=== PATIENT | female | born 1935 | race Caucasian/White ===

== ENCOUNTER 2020-05-25 18:03 | Inpatient (IN) | payer MEDICARE ==
[2020-05-25 20:57] LABS: Glucose,Whole Blood 123 mg/dL (75-99)
[2020-05-25] MEDS ORDERED: NALOXONE 0.4 MG/ML 1 ML VIAL IV PRN (23:55)
[2020-05-25] MEDS ORDERED: hydrALAZINE HCL 50 MG TAB PO STA (23:58)
[2020-05-26] MEDS ORDERED: levETIRAcetam IV 1,000 MG in SALINE 1 100ML.BAG IVPB ONE
[2020-05-26] MEDS: SODIUM CHLORIDE 0.9% 1,000 ML IV SCH ×3 (00:30→21:02)
[2020-05-26 01:40] LABS: Basophils # (A) 0.1 k/uL (0-0.2); Basophils % (A) 2 %; Eosinophils # (A) 0.1 k/uL (0-0.7); Eosinophils % (A) 1 %; HCT 32.8 % (34.0-46.0); HGB 10.8 gm/dL (11.4-16.0); Lymphocytes # (A) 1.5 k/uL (1.0-4.8); Lymphocytes % (A) 19 %; MCH 30.7 pg (25.0-35.0); MCHC 32.8 g/dL (31.0-37.0); MCV 93.6 fL (80.0-100.0); Mean Platelet Volume 8.6; Monocytes # (A) 0.6 k/uL (0-1.0); Monocytes % (A) 8 %; Neutrophils # (A) 5.3 k/uL (1.3-7.7); Neutrophils % (A) 69 %; Platelet Count 283 k/uL (150-450); RBC 3.51 m/uL (3.80-5.40); RDW 14.7 % (11.5-15.5); WBC 7.8 k/uL (3.8-10.6)
[2020-05-26 01:41] LABS: Albumin 3.3 g/dL (3.5-5.0); Calcium 9.7 mg/dL (8.4-10.2); Magnesium 1.3 mg/dL (1.6-2.3); Potassium 4.2 mmol/L (3.5-5.1); Total Bilirubin 0.8 mg/dL (0.2-1.3)
--- NOTE | 2020-05-26 01:43 | CT ---
EXAM: CT Head Without Intravenous Contrast CLINICAL HISTORY: AMS TECHNIQUE: Axial computed tomography images of the head/brain without intravenous contrast. CTDI is each 50.8 mGy and DLP is 1103.4 mGy-cm. This CT exam was performed using one or more of the following dose reduction techniques: automated exposure control, adjustment of the mA and/or kV according to patient size, and/or use of iterative reconstruction technique. COMPARISON: No relevant prior studies available. FINDINGS: Brain: No acute findings. No acute intracranial hemorrhage, edema or abnormal mass-effect. Ventricles: Unremarkable. No ventriculomegaly. Bones/joints: Unremarkable. No acute fracture. Soft tissues: Unremarkable. Sinuses: Unremarkable as visualized. No acute sinusitis. Mastoid air cells: Unremarkable as visualized. No mastoid effusion. IMPRESSION: No acute intracranial findings.
--- NOTE | 2020-05-26 01:54 | XR ---
EXAM: XR Chest, 1 View CLINICAL HISTORY: AMS TECHNIQUE: Frontal view of the chest. COMPARISON: No relevant prior studies available. FINDINGS: Lungs: Unremarkable. No acute infiltration, atelectasis or mass. Pleural space: Unremarkable. No pneumothorax or pleural fluid. Heart: Unremarkable. No cardiomegaly. Mediastinum: Unremarkable. Bones/joints: No acute findings. IMPRESSION: No acute findings in the chest.
--- NOTE | 2020-05-26 01:55 | P.HPIM ---
History of Present Illness H&P Date: 05/25/20 Patient is an 84-year-old female with a PMH of type II DM and hypertension who was transferred from [facility] where she had presented on 05/21 with initial complaints of shortness of breath. The patient was found to have possible right lower lobe infiltrate on chest x-ray and was admitted for community acquired pneumonia and rule out Covid. The patient's coronavirus testing was negative. As per the documentation the patient's family had reported that the patient had a hip replacement revision surgery in April and that she had not been herself since then though had continued to meet her ADLs and lived by herself. On the patient's second day of hospitalization she had a decline in her mental status. She was diagnosed with likely acute delirium and was subsequently transferred to [facility]. The patient was seen on the medical unit following transfer. She was awake though was confused and not answering questions appropriately. No meaningful history could be obtained. The patient had undergone an extensive evaluation at [facility] which was all reviewed with laboratory evaluation showing a UA not consistent with UTI, WBC count of 8.8, hemoglobin 10.8, platelets 287, troponin 0.11, sodium 138, potassium 3.7, chloride 106, CO2 19, BUN 16, creatinine 0.9, AST 16, ALT 9, T bili 0.7, lactic acid 0.7, CT head showing remote lacunar infarcts but otherwise unremarkable, and chest x-ray showing lower lung lucero airway disease bilaterally. EKG had revealed normal sinus rhythm at [address]/T-wave changes noted as reviewed by me. Review of Systems ROS unobtainable: due to mental status Medications and Allergies Home Medications Medication Instructions Recorded Confirmed Type Acetaminophen [Tylenol] 650 mg PO Q6H PRN 05/25/20 05/25/20 History Aspirin [Adult Low Dose Aspirin EC] 81 mg PO Q12H 05/25/20 05/25/20 History Biotin 10,000 mcg PO DAILY 05/25/20 05/25/20 History Celecoxib [CeleBREX] 200 mg PO HS 05/25/20 05/25/20 History Cholecalciferol [Vitamin D3 (25 2,000 unit PO DAILY 05/25/20 05/25/20 History Mcg = 1000 Iu)] Chromium Picolinate 200 mcg PO DAILY 05/25/20 05/25/20 History Cinnamon Bark [Cinnamon] 1,000 mg PO DAILY 05/25/20 05/25/20 History Enalapril Maleate 10 mg PO DAILY 05/25/20 05/25/20 History Ferrous Sulfate [Iron (65 MG 325 mg PO W/BRKFST 05/25/20 05/25/20 History Elemental)] HYDROcodone/APAP 5-325MG [[place] 1 tab PO Q4-6H 05/25/20 05/25/20 History 5-325] Lane Natural Advanced Tart Person 1 tab PO DAILY 05/25/20 05/25/20 History 465mg Metoprolol Tartrate [Lopressor] 12.5 mg PO BID 05/25/20 05/25/20 History Multivitamins, Thera [Multivitamin 1 tab PO DAILY 05/25/20 05/25/20 History (formulary)] Nortriptyline HCl [Pamelor] 50 mg PO DAILY 05/25/20 05/25/20 History [place]-3 Fatty Acids/Fish Oil [Fish 3 tab PO DAILY 05/25/20 05/25/20 History Oil 1,000 mg Softgel] Pioglitazone HCl/Metformin HCl 1 tab PO DIRECTED 05/25/20 05/25/20 History [Actoplus Met 15 mg-500 mg Tab] Sennosides [Senna] 8.6 mg PO HS 05/25/20 05/25/20 History Triple Magnesium Complex 400mg 1 tab PO DAILY 05/25/20 05/25/20 History Turmeric Powder 750mg 1 tab PO DAILY 05/25/20 05/25/20 History Vitamin E 400 unit PO DAILY 05/25/20 05/25/20 History hydrOXYzine HCL [Atarax] 25 mg PO DIRECTED PRN 05/25/20 05/25/20 History metFORMIN HCL [Glucophage] 500 mg PO DIRECTED 05/25/20 05/25/20 History traZODone HCL [Desyrel] 50 mg PO HS 05/25/20 05/25/20 History Allergies Allergy/AdvReac Type Severity Reaction Status Date / Time acetaminophen [From Percocet] Allergy Unknown Verified 05/25/20 22:26 erythromycin base Allergy Unknown Verified 05/25/20 22:26 oxycodone [From Percocet] Allergy Unknown Verified 05/25/20 22:26 sulfamethoxazole Allergy Unknown Verified 05/25/20 22:26 [From ] trimethoprim [From ] Allergy Unknown Verified 05/25/20 22:26 Physical Exam Vitals: Intake and Output 05/25/20 05/25/20 05/25/20 06:59 14:59 22:59 Output Total 0 Balance 0 Output: Urine 0 Other: # Voids 0 General: non toxic, tremulous, appears at stated age Derm: no unusual rashes/lesions no unusual ecchymoses, warm, dry Head: atraumatic, normocephalic, symmetric Eyes: EOMI, no lid lag, anicteric sclera, pupils equal round reactive to light ENT: Nose and ears atraumatic, no thrush, no pharyngeal erythema Neck: No thyromegaly, no cervical lymphadenopathy, trachea midline, supple Mouth: no lip lesion, mucus membranes moist Cardiovascular: S1S2 reg, no murmur, positive posterior tibial pulse bilateral, no edema, capillary refill less than 2 seconds Lungs: CTA bilateral, no rhonchi, no rales , no accessory muscle use Abdominal: soft, nontender to palpation, no guarding, no appreciable organomegaly, normal bowel sounds Ext: no gross muscle atrophy, muscle strength 3-4 out of 5 in all 4 extremities grossly, no contractures Neuro: CN II-XI grossly intact, no focal neuro deficits noted, appears tremulous and agitated, pulling at her clothes Psych: Awake, oriented to self but not oriented to place or time Results Labs: Abnormal Lab Results - Last 24 Hours (Table) 05/25/20 Range/Units 20:48 POC Glucose (mg/dL) 123 H (75-99) mg/dL Assessment and Plan Plan: Altered mentation, suspected secondary to acute delirium with less likely seizure -Continue to reorient -Close monitoring -Fall precautions -Continue to treat underlying cause of likely community acquired pneumonia -UA unremarkable -Neurology consult -S/p 1g of Keppra -Neuro-checks Community acquired pnuemonia -C/w Levaquin (allergic to macrolides) Type 2 DM -BECKY with FS -Check A1C Elevated troponin -Repeat in AM DVT prophylaxis -Heparin subq The patient is admitted with an anticipated greater than 2 midnight stay for evaluation of AMS CODE STATUS: Full Code Discussed with: RN, patient Anticipated discharge date: 2-[address]: Home/[facility] A total of 40 minutes was spent on the care of this complex patient more than 50% of the time was spent in counseling and care coordination.
[2020-05-26] MEDS: LEVOFLOXACIN 750MG-D5W PMX 750 MG in DEXTROSE/WATER 1 150ML.BAG IVPB SCH (05:00)
[2020-05-26 06:58] LABS: Glucose,Whole Blood 149 mg/dL (75-99)
[2020-05-26] MEDS: INSULIN ASPART (NovoLOG) 100 UNIT/ML VIAL SQ SCH ×4 (07:10→21:02)
--- NOTE | 2020-05-26 09:57 | P.CNNES ---
History of Present Illness Consult date: 05/26/20 Requesting physician: German Menezes Reason for Consult: altered mental status History of Present Illness: This is an 84-year-old woman with medical history of type 2 diabetes and the hypertension that was transferred from [facility] where she presented on 05/21/20 with initial complaining of shortness of breath. The patient was found to have possible right lower lobe infiltrate on chest x-ray and was admitted for community-acquired pneumonia and rule out Covid. The patient was transferred to [facility] for escalation of care on 05/25/2020. Neurology is consulted for altered mental status. History was obtained from medical records since on able to obtain the history from the patient. At the outside facility, patient vance virus testing was negative. Per the medical record and stated that the patient's family had reported the patient had the hip placement revision surgery in April and since then the patient has not been herself then though had continue to meet her ADLs and lives by herself. On the patient secondary of hospitalization that she had a decline in her mental s tatus. She had the extensive testing and a UA was not consistently urinary tract infection. Her white blood cell at the outside facility was 8.8, hemoglobin was 10.8, platelet was 287 and troponin was 0.11. The sodium was 138 the BUN was 16 and creatinine was 0.9. The AST was 16 and ALT was 9. Lactic acid was 0.7. CT of the head that showed the remote lacunar infarct but otherwise unremarkable. The chest x-ray showing good lower lung lucero airway disease bilaterally. And EKG had revealed normal sinus rhythm at 92 beats per minutes with no ST/T-wave changes noted status. Per the patient nurse the patient is agitated and picking at her clothes. She was diagnosed with acute delirium. and as a result she was transferred to [facility] for escalation of care. Workup and our facility consisted of: Initial vital signs is blood pressure of 190/100, heart rate of 106, temperature of 98.8 Fahrenheit oral, respiratory rate of 18 and the pulse ox of 97% at room air. CT of the head that at our facility was reported as no acute intracranial findings. Chest x-ray was reported as no acute findings in the chest. White blood cell was 7.8 which is within normal limits. Sodium is 138 also within normal limits. Serum glucose was 123. Magnesium was 1.3. Patient received Keppra 1 g at our facility on 05/26/2020 as a loading dose and was not started on the an any antiepileptic scheduled. In the primary team's note they felt this was less likely of a seizure. Review of Systems Review of system is limited as the patient condition but the per positive and negative as per HPI. Past Medical History Past Medical History: Diabetes Mellitus, Hyperlipidemia, Hypertension Additional Past Medical History / Comment(s): tremor, anemia, colitis, anxiety History of Any Multi-Drug Resistant Organisms: None Reported Past Surgical History: Joint Replacement Additional Past Surgical History / Comment(s): total R hip replacement Past Anesthesia/Blood Transfusion Reactions: No Reported Reaction Past Psychological History: Anxiety Smoking Status: Never smoker Medications and Allergies Home Medications Medication Instructions Recorded Confirmed Type Acetaminophen [Tylenol] 650 mg PO Q6H PRN 05/25/20 05/25/20 History Aspirin [Adult Low Dose Aspirin EC] 81 mg PO Q12H 05/25/20 05/25/20 History Biotin 10,000 mcg PO DAILY 05/25/20 05/25/20 History Celecoxib [CeleBREX] 200 mg PO HS 05/25/20 05/25/20 History Cholecalciferol [Vitamin D3 (25 2,000 unit PO DAILY 05/25/20 05/25/20 History Mcg = 1000 Iu)] Chromium Picolinate 200 mcg PO DAILY 05/25/20 05/25/20 History Cinnamon Bark [Cinnamon] 1,000 mg PO DAILY 05/25/20 05/25/20 History Enalapril Maleate 10 mg PO DAILY 05/25/20 05/25/20 History Ferrous Sulfate [Iron (65 MG 325 mg PO W/BRKFST 05/25/20 05/25/20 History Elemental)] HYDROcodone/APAP 5-325MG [[place] 1 tab PO Q4-6H 05/25/20 05/25/20 History 5-325] Lane Natural Advanced Tart Person 1 tab PO DAILY 05/25/20 05/25/20 History 465mg Metoprolol Tartrate [Lopressor] 12.5 mg PO BID 05/25/20 05/25/20 History Multivitamins, Thera [Multivitamin 1 tab PO DAILY 05/25/20 05/25/20 History (formulary)] Nortriptyline HCl [Pamelor] 50 mg PO DAILY 05/25/20 05/25/20 History [place]-3 Fatty Acids/Fish Oil [Fish 3 tab PO DAILY 05/25/20 05/25/20 History Oil 1,000 mg Softgel] Sennosides [Senna] 8.6 mg PO HS 05/25/20 05/25/20 History Triple Magnesium Complex 400mg 1 tab PO DAILY 05/25/20 05/25/20 History Turmeric Powder 750mg 1 tab PO DAILY 05/25/20 05/25/20 History Vitamin E 400 unit PO DAILY 05/25/20 05/25/20 History hydrOXYzine HCL [Atarax] 25 mg PO DAILY PRN 05/25/20 05/26/20 History metFORMIN HCL [Glucophage] 500 mg PO DAILY 05/25/20 05/26/20 History traZODone HCL [Desyrel] 50 mg PO HS 05/25/20 05/25/20 History Allergies Allergy/AdvReac Type Severity Reaction Status Date / Time acetaminophen [From Percocet] Allergy Unknown Verified 05/25/20 22:26 erythromycin base Allergy Unknown Verified 05/25/20 22:26 oxycodone [From Percocet] Allergy Unknown Verified 05/25/20 22:26 sulfamethoxazole Allergy Unknown Verified 05/25/20 22:26 [From Septra] trimethoprim [From Septra] Allergy Unknown Verified 05/25/20 22:26 Physical Examination - Vital Signs Vital Signs: Vital Signs Temp Pulse Resp BP Pulse Ox 05/26/20 04:00 98.1 F 105 H 18 183/88 94 L 05/26/20 00:00 98.7 F 90 18 136/101 94 L 05/25/20 21:45 98.8 F 106 H 18 190/100 97 Intake and Output 05/25/20 05/26/20 05/26/20 22:59 06:59 14:59 Output Total 0 Balance 0 Output: Urine 0 Other: Voiding Method Diaper Diaper # Voids 0 1 Weight 96.5 kg 97.5 kg GENERAL: The patient is lying and seemed restless. CHEST: The heart rate is regular rate rhythm. No murmurs to auscultation. LUNG: Clear to auscultation bilaterally no wheezing noted throughout. Not labored breathing. ABDOMEN/GI: Bowel sounds present in all 4 quadrants. No tenderness to palpation throughout. NEUROLOGICAL: Limited because of patient condition Higher mental function: The patient is awake and not verbally responsive or following commands. All she says is "leave me alone". Cranial nerves: The pupils are round, but unable to get the size because patient kept on closing them. Visual lucero are full to threat. Extraocular movement is able to tract me throughout the room. Facial sensation unable to assess. No facial weakness noted at baseline. Hearing is unable to assess. Motor: Gait is deferred because of lack of cooperation. The strength is limited because of her condition but able to lift bilateral upper extremities above gravity and there does not seem to be focal deficit. While lower extremities was moving side to side. She seemed to have tremor of bilateral upper extremities. Cerebellum: Unable to assess Sensation: Seemed intact to painful stimuli. Reflexes (right/left): Unable to assess because of her cooperation. Plantars are mute bilaterally. Results AST of 26, ALT of 11. BUN 18 and creatinine is 0.85. CK is 142. - Laboratory Findings CBC and BMP: 05/26/20 00:28 05/26/20 00:28 Abnormal Lab Findings: Abnormal Labs 05/25/20 05/26/20 05/26/20 20:48 00:28 00:28 RBC 3.51 L Hgb 10.8 L Hct 32.8 L Chloride 110 H Carbon Dioxide 18 L BUN 18 H Glucose 123 H POC Glucose (mg/dL) 123 H Magnesium 1.3 L Creatine Kinase 142 H Total Protein 6.0 L Albumin 3.3 L 05/26/20 06:57 RBC Hgb Hct Chloride Carbon Dioxide BUN Glucose POC Glucose (mg/dL) 149 H Magnesium Creatine Kinase Total Protein Albumin Assessment and Plan Assessment: This is a 84-year-old woman that was transferred from [facility] where she presented on 05/21/20 with initial complaining of shortness of breath. She has Altered mental status and was transferred for escalation of care. Per medical records, patient's family had reported the patient had hip placement revision surgery in April 2020 and since then the patient has not been herself then though had continue to meet her ADLs and lives by herself. Delerium. One of causes are underlying pneumonia, uncontrolled hypertension and hospital stay Uncontrolled hypertension Possible ischemia acquired pneumonia (per Primary team) Diabetes mellitus Plan: I ordered a routine EEG. I will not start the patient on antiepileptic unless there is epileptiform discharges or seizure on the EEG. She received Keppra 1 gm (around 00:44 on 05/26/20) by the primary team at our facility and that was not start any the maintenance seizure medication and they felt the seizure was less likely. I ordered TSH, vitamin B12, folate and ammonia level. Urinalysis is ordered by the primary team and it's pending. During the day have the lights on and open the window curtains while opposite at night. Consider Seroquel low dose PRN if needed for agitation. We'll defer the treatment of any underlying pneumonia to the primary team. We'll defer management of her hypertension as well as her diabetes to the primary team. Thank you for the consultation. Giancarlo Ledezma M.D. Neuro-hospitalist Time with Patient: Greater than 30
[2020-05-26] MEDS ORDERED: HALOPERIDOL LACTATE 5 MG/ML 1 ML VIAL IM PRN (10:58)
[2020-05-26] MEDS: ASPIRIN 81 MG PO SCH ×2 (11:17→20:56)
[2020-05-26] MEDS: HEPARIN SODIUM,PORCINE 5,000 UNIT/ML 1 ML VIAL SQ SCH ×2 (11:17→18:42)
[2020-05-26] MEDS: lisinopriL 10 MG TAB PO SCH (11:17)
[2020-05-26] MEDS: METOPROLOL TARTRATE 12.5 MG TAB PO SCH ×2 (11:18→20:56)
[2020-05-26] MEDS ORDERED: levETIRAcetam IV 500 MG in SODIUM CHLORIDE 0.9% 100 ML IVPB SCH (12:00)
[2020-05-26 12:12] LABS: Glucose,Whole Blood 120 mg/dL (75-99)
[2020-05-26 12:32] LABS: T4, Free (Free Thyroxine) 2.31 ng/dL (0.78-2.19)
--- NOTE | 2020-05-26 15:25 | P.PN ---
Subjective Progress Note Date: 05/26/20 Patient continues to remain agitated and combatative, but improved with haldol. EEG ordered and pending. Unclear etiology of symptoms, but consideration of alcohol withdrawal considering timeline. Objective - Vital Signs Vital signs: Vital Signs Temp 98.1 F 05/26/20 11:41 Pulse 123 H 05/26/20 11:41 Resp 18 05/26/20 11:41 BP 130/92 05/26/20 11:41 Pulse Ox 94 L 05/26/20 11:41 Intake & Output 05/25/20 05/26/20 05/26/20 18:59 06:59 18:59 Output Total 0 Balance 0 Weight 97.5 kg Output: Urine 0 Other: Voiding Method Diaper Diaper # Voids 1 - Exam Gen: awake, alert, agitated, not cooperative HEENT: normocephalic, atraumatic, good hearing acuity, moist mucous membranes Resp: CTAB, good air exchange, no accessory muscle use, no wheezes, crackles, rhonchi CVS: good distal perfusion x 4, RRR, no murmurs, clicks, gallops GI: soft, NTTP, ND : no SPT, no CVAT, khan catheter not present MSK: no pitting edema, no clubbing Neuro: non-focal, no sensory deficits, appropriate tone - Labs CBC & Chem 7: 05/26/20 00:28 05/26/20 00:28 Labs: Abnormal Lab Results - Last 24 Hours (Table) 05/25/20 05/26/20 05/26/20 Range/Units 20:48 00:28 00:28 RBC 3.51 L (3.80-5.40) m/uL Hgb 10.8 L (11.4-16.0) gm/dL Hct 32.8 L (34.0-46.0) % Chloride 110 H (98-107) mmol/L Carbon Dioxide 18 L (22-30) mmol/L BUN 18 H (7-17) mg/dL Glucose 123 H (74-99) mg/dL POC Glucose (mg/dL) 123 H (75-99) mg/dL Magnesium 1.3 L (1.6-2.3) mg/dL Creatine Kinase 142 H (30-135) U/L Troponin I (0.000-0.034) ng/mL Total Protein 6.0 L (6.3-8.2) g/dL Albumin 3.3 L (3.5-5.0) g/dL TSH (0.465-4.680) mIU/L Free T4 (0.78-2.19) ng/dL 05/26/20 05/26/20 05/26/20 Range/Units 06:57 10:18 10:18 RBC (3.80-5.40) m/uL Hgb (11.4-16.0) gm/dL Hct (34.0-46.0) % Chloride (98-107) mmol/L Carbon Dioxide (22-30) mmol/L BUN (7-17) mg/dL Glucose (74-99) mg/dL POC Glucose (mg/dL) 149 H (75-99) mg/dL Magnesium (1.6-2.3) mg/dL Creatine Kinase (30-135) U/L Troponin I 0.077 H* (0.000-0.034) ng/mL Total Protein (6.3-8.2) g/dL Albumin (3.5-5.0) g/dL TSH 0.416 L (0.465-4.680) mIU/L Free T4 2.31 H (0.78-2.19) ng/dL 05/26/20 Range/Units 12:08 RBC (3.80-5.40) m/uL Hgb (11.4-16.0) gm/dL Hct (34.0-46.0) % Chloride (98-107) mmol/L Carbon Dioxide (22-30) mmol/L BUN (7-17) mg/dL Glucose (74-99) mg/dL POC Glucose (mg/dL) 120 H (75-99) mg/dL Magnesium (1.6-2.3) mg/dL Creatine Kinase (30-135) U/L Troponin I (0.000-0.034) ng/mL Total Protein (6.3-8.2) g/dL Albumin (3.5-5.0) g/dL TSH (0.465-4.680) mIU/L Free T4 (0.78-2.19) ng/dL Assessment and Plan Assessment: Acute delirium of unclear etiology, seizure versus alcohol withdrawal versus septic encephalopathy -Continue to reorient -Close monitoring -Fall precautions -Continue to treat underlying cause of likely community acquired pneumonia -UA unremarkable -Neurology consult -S/p 1g of Keppra -Neuro-checks -Ativan when necessary with CIWA protocol Community acquired pnuemonia -C/w Levaquin (allergic to macrolides) Type 2 DM -BECKY with FS -Check A1C Elevated troponin -Repeat in AM DVT prophylaxis -Heparin subq The patient is admitted with an anticipated greater than 2 midnight stay for evaluation of AMS CODE STATUS: Full Code Discussed with: RN, patient Anticipated discharge date: 2-[address]: Home/[facility]
[2020-05-26 17:07] LABS: Glucose,Whole Blood 136 mg/dL (75-99)
[2020-05-26 17:36] LABS: Amorphous Sediment,Urine Rare /hpf; Appearance,Urine Clear (Clear); Bilirubin,Urine Negative (Negative); Blood,Urine Trace (Negative); Color,Urine Yellow; Glucose,Urine (UA) Negative (Negative); Hyaline Casts,Urine 1 /lpf (0-2); Ketones,Urine 2+ (Negative); Leukocyte Esterase,Urine Negative (Negative); Mucus,Urine Rare /hpf; Nitrite,Urine Negative (Negative); PH, Urine 5.5 (5.0-8.0); Protein,Urine Trace (Negative); RBC,Urine 3 /hpf (0-5); Specific Gravity,Urine 1.016 (1.001-1.035); Squamous Epithelial Cell,Urine <1 /hpf (0-4); Urobilinogen,Urine <2.0 mg/dL (<2.0); WBC,Urine 1 /hpf (0-5)
[2020-05-26 18:29] LABS: Hemoglobin A1C 5.6 % (4.0-6.0)
--- NOTE | 2020-05-26 19:53 | EEG ---
ELECTROENCEPHALOGRAM REPORT DATE OF SERVICE: 05/26/2020 CLINICAL HISTORY: This is an 84-year-old woman who was transferred from an outside facility for altered mental status. This video EEG was obtained to evaluate for seizure and epileptiform activity. RELEVANT MEDICATION: The patient is not on any antiepileptic drug. She did receive 1 gram of Keppra overnight once. EEG TYPE: A routine 21-channel EEG was performed with video using the 10/20 electrode placement system. DESCRIPTION: Wakefulness is only obtained. During wakefulness, there is no clear posterior- dominant rhythm. The background consists of moderate voltage nonrhythmic 2 to 3 hertz delta activity over the bilateral hemispheres intermixed with theta activity. There was no physiological stage II sleep. There is significant myogenic artifact over bilateral hemispheres. Interictal and ictal: None. ACTIVATION PROCEDURES: Photic stimulation did not evoke a posterior driving response over bilateral hemispheres. Hyperventilation was not performed because of the patient's clinical history. CLINICAL INTERPRETATION: This is an abnormal routine EEG. The background slowing is consistent with moderate to severe encephalopathy of unspecified etiology. There are no focal slowing, epileptiform discharges or seizure seen during the study. There are significant myogenic artifacts throughout the study. Clinical correlation is recommended. MMODL / IJN: [id number] / HILARY
[2020-05-26 20:35] LABS: Glucose,Whole Blood 132 mg/dL (75-99)
[2020-05-27] MEDS: SODIUM CHLORIDE 0.9% 1,000 ML IV SCH ×2 (01:50→08:24)
[2020-05-27] MEDS: HEPARIN SODIUM,PORCINE 5,000 UNIT/ML 1 ML VIAL SQ SCH ×3 (01:50→18:38)
[2020-05-27] MEDS: LEVOFLOXACIN 750MG-D5W PMX 750 MG in DEXTROSE/WATER 1 150ML.BAG IVPB SCH (02:42)
[2020-05-27 06:18] LABS: Glucose,Whole Blood 137 mg/dL (75-99)
[2020-05-27] MEDS: INSULIN ASPART (NovoLOG) 100 UNIT/ML VIAL SQ SCH ×4 (06:26→21:47)
[2020-05-27] MEDS: MULTIVITAMINS, THERA 1 EACH TAB PO SCH (08:34)
[2020-05-27] MEDS: METOPROLOL TARTRATE 12.5 MG TAB PO SCH ×2 (08:34→20:24)
[2020-05-27] MEDS: FOLIC ACID 1 MG TAB PO SCH (08:34)
[2020-05-27] MEDS: lisinopriL 10 MG TAB PO SCH (08:34)
[2020-05-27] MEDS: THIAMINE 100 MG TAB PO SCH (08:34)
[2020-05-27] MEDS: ASPIRIN 81 MG PO SCH ×2 (08:34→20:15)
--- NOTE | 2020-05-27 09:12 | P.PN ---
Subjective Progress Note Date: 05/27/20 Patient is asleep and resting comfortably. EEG negative for seizures, but did show slowed background consistent with encephalopathic process. Objective - Vital Signs Vital signs: Vital Signs Temp 99.3 F 05/27/20 04:00 Pulse 123 H 05/27/20 04:00 Resp 20 05/27/20 04:00 BP 196/97 05/27/20 04:00 Pulse Ox 97 05/27/20 04:00 Intake & Output 05/26/20 05/27/20 05/27/20 18:59 06:59 18:59 Intake Total 0 Output Total 350 Balance -350 Weight 97.1 kg Intake: Oral 0 Output: Urine 350 Stool 0 Other: Voiding Method Diaper Diaper # Voids 3 # Bowel Movements 0 - Exam Gen: asleep, resting comfortably HEENT: normocephalic, atraumatic, good hearing acuity, moist mucous membranes Resp: CTAB, good air exchange, no accessory muscle use, no wheezes, crackles, rhonchi CVS: good distal perfusion x 4, RRR, no murmurs, clicks, gallops GI: soft, NTTP, ND : no SPT, no CVAT, khan catheter not present MSK: no pitting edema, no clubbing Neuro: non-focal, no sensory deficits, appropriate tone - Labs CBC & Chem 7: 05/26/20 00:28 05/26/20 00:28 Labs: Abnormal Lab Results - Last 24 Hours (Table) 05/26/20 05/26/20 05/26/20 Range/Units 10:18 10:18 12:08 POC Glucose (mg/dL) 120 H (75-99) mg/dL Troponin I 0.077 H* (0.000-0.034) ng/mL Vitamin B12 1419.0 H (200.0-944.0) pg/mL TSH 0.416 L (0.465-4.680) mIU/L Free T4 2.31 H (0.78-2.19) ng/dL Urine Protein (Negative) Urine Ketones (Negative) Urine Blood (Negative) Amorphous Sediment (None) /hpf Urine Mucus (None) /hpf 05/26/20 05/26/20 05/26/20 Range/Units 16:40 16:56 20:34 POC Glucose (mg/dL) 136 H 132 H (75-99) mg/dL Troponin I (0.000-0.034) ng/mL Vitamin B12 (200.0-944.0) pg/mL TSH (0.465-4.680) mIU/L Free T4 (0.78-2.19) ng/dL Urine Protein Trace H (Negative) Urine Ketones 2+ H (Negative) Urine Blood Trace H (Negative) Amorphous Sediment Rare H (None) /hpf Urine Mucus Rare H (None) /hpf 05/27/20 Range/Units 06:17 POC Glucose (mg/dL) 137 H (75-99) mg/dL Troponin I (0.000-0.034) ng/mL Vitamin B12 (200.0-944.0) pg/mL TSH (0.465-4.680) mIU/L Free T4 (0.78-2.19) ng/dL Urine Protein (Negative) Urine Ketones (Negative) Urine Blood (Negative) Amorphous Sediment (None) /hpf Urine Mucus (None) /hpf Assessment and Plan Assessment: Acute delirium of unclear etiology, seizure versus alcohol withdrawal versus septic encephalopathy -Continue to reorient -Close monitoring -Fall precautions -Continue to treat underlying cause of likely community acquired pneumonia -UA unremarkable -Neurology consult -S/p 1g of Keppra -Neuro-checks -Ativan when necessary with CIWA protocol Community acquired pnuemonia -C/w Levaquin (allergic to macrolides) Type 2 DM -BECKY with FS -Check A1C Elevated troponin -Repeat in AM DVT prophylaxis -Heparin subq The patient is admitted with an anticipated greater than 2 midnight stay for evaluation of AMS CODE STATUS: Full Code Discussed with: RN, patient Anticipated discharge date: 2-[address]: Home/[facility]
[2020-05-27 12:16] LABS: Glucose,Whole Blood 137 mg/dL (75-99)
--- NOTE | 2020-05-27 13:19 | P.PN ---
Subjective Progress Note Date: 05/27/20 Patient was seen at bedside and the per the patient nurse her condition hasn't changed as she is about the same. Per the patient nurse the the head yesterday she stated that the the family initially didn't want any management on her when she spoke to them but later when the primary care physician's spoke to the family they recommended to continue with the medical management. Objective - Vital Signs Vital signs: Vital Signs Temp 99.0 F 05/27/20 11:00 Pulse 85 05/27/20 11:00 Resp 18 05/27/20 11:00 BP 195/110 05/27/20 11:00 Pulse Ox 98 05/27/20 11:00 Intake & Output 05/26/20 05/27/20 05/27/20 18:59 06:59 18:59 Intake Total 0 Output Total 350 0 Balance -350 0 Weight 97.1 kg Intake: Oral 0 Output: Urine 350 Stool 0 0 Other: Voiding Method Diaper Diaper Diaper # Voids 3 # Bowel Movements 0 - Exam GENERAL: The patient is lying and did not seem in acute distress and not restless (better than yesterday). NEUROLOGICAL: Limited because of patient condition Higher mental function: The patient is awake and not verbally responsive or following commands. All she continues to say is "leave me alone". Cranial nerves: The pupils are round, but unable to get the size because patient kept on closing them. Visual lucero are full to threat. Extraocular movement is able to tract me throughout the room. Facial sensation unable to assess. No facial weakness noted at baseline. Hearing is unable to assess. Motor: Gait is deferred because of lack of cooperation. The strength is limited because of her condition but able to lift bilateral upper extremities above gravity and there does not seem to be focal deficit. While lower extremities was moving side to side. She seemed to have tremor of bilateral upper extremities. Cerebellum: Unable to assess Sensation: Seemed intact to painful stimuli. Reflexes (right/left): Unable to assess because of her cooperation. Plantars are mute bilaterally. - Labs CBC & Chem 7: 05/26/20 00:28 05/26/20 00:28 Labs: Abnormal Lab Results - Last 24 Hours (Table) 05/26/20 05/26/20 05/26/20 Range/Units 10:18 16:40 16:56 POC Glucose (mg/dL) 136 H (75-99) mg/dL Vitamin B12 1419.0 H (200.0-944.0) pg/mL Urine Protein Trace H (Negative) Urine Ketones 2+ H (Negative) Urine Blood Trace H (Negative) Amorphous Sediment Rare H (None) /hpf Urine Mucus Rare H (None) /hpf 05/26/20 05/27/20 05/27/20 Range/Units 20:34 06:17 12:15 POC Glucose (mg/dL) 132 H 137 H 137 H (75-99) mg/dL Vitamin B12 (200.0-944.0) pg/mL Urine Protein (Negative) Urine Ketones (Negative) Urine Blood (Negative) Amorphous Sediment (None) /hpf Urine Mucus (None) /hpf Assessment and Plan Assessment: This is a 84-year-old woman that was transferred from [facility] where she presented on 05/21/20 with initial complaining of shortness of breath. She has Altered mental status and was transferred for escalation of care. Per medical records, patient's family had reported the patient had hip placement revision surgery in April 2020 and since then the patient has not been herself then though had continue to meet her ADLs and lives by herself. Delerium. One of causes are underlying pneumonia, uncontrolled hypertension and hospital stay. Uncontrolled hypertension Possible ischemia acquired pneumonia (per Primary team) Diabetes mellitus Plan: She received Keppra 1 gm (around 00:44 on 05/26/20) by the primary team at our facility and that was not start any the maintenance seizure medication and they felt the seizure was less likely. Routine EEG on 05/26/2020 showed the tobacco slowing is consistent with moderate to severe encephalopathy of nonspecific etiology. There are no focal slowing, epileptiform discharges or seizure seen during the on the study. There are significant myogenic artifact throughout the study. As a result of the EEG and there is no clinical seizure episode therefore I'll not consider the patient on antiepileptic drug at this time. TSH: 0.416, free T4: 2.31. Vitamin B12: 1419. folate: pending. Ammonia level <9. Urinalysis: no UTI. During the day have the lights on and open the window curtains while opposite at night. Consider Seroquel low dose PRN if needed for agitation. Currently the patient is on hormonal 2 mg IM every 4 hours when necessary for agitation. Again I recommend Seroquel over Haldol. We'll defer the treatment of any underlying pneumonia to the primary team. We'll defer management of her hypertension as well as her diabetes to the primary team. Will continue to follow. Giancarlo Ledezma M.D. Neuro-hospitalist Time with Patient: Less than 30
[2020-05-27] MEDS ORDERED: VANCOMYCIN IV PER PHARMACY 1 EACH MISC MISCELLANE PRN (18:21)
[2020-05-27 18:23] LABS: Glucose,Whole Blood 152 mg/dL (75-99)
[2020-05-27] MEDS ORDERED: ACETAMINOPHEN TAB 325 MG TAB PO PRN (18:36)
--- NOTE | 2020-05-27 18:58 | XR ---
EXAMINATION TYPE: XR chest 1V portable DATE OF EXAM: 05/27/2020 CLINICAL HISTORY: Fever progress study. TECHNIQUE: Single AP portable upright view of the chest is obtained. COMPARISON: Chest x-ray from one day earlier FINDINGS: Metallic hardware from right shoulder surgery is redemonstrated. Multiple overlying EKG le ads again seen. Cardiac silhouette size stable and upper limits of normal. Chronic parenchymal change s without new suspicious focal airspace opacity, pleural effusion, or pneumothorax seen bilaterally. Patchy left basilar findings redemonstrated. IMPRESSION: Chronic changes with patchy left basilar atelectasis and/or infiltrate. No significant ch kalpana from one day earlier.
[2020-05-27] MEDS ORDERED: VANCOMYCIN 1,500 MG in SODIUM CHLORIDE 0.9% 250 ML IVPB ONE (19:00)
[2020-05-27 20:39] LABS: Glucose,Whole Blood 138 mg/dL (75-99)
[2020-05-27] MEDS ORDERED: LABETALOL 5 MG/ML VIAL MDV IVP STA (21:18)
[2020-05-27 22:56] LABS: ABG Base Excess -4.2 mmol/L; ABG HCO3 20 mmol/L (21-25); ABG Oxygen Saturation 95.8 % (94-97); ABG PCO2 31 mmHg (35-45); ABG PH 7.42 (7.35-7.45); ABG PO2 73 mmHg (83-108); ABG TCO2 21 mmol/L (19-24); Allen Test Performed? Yes
--- NOTE | 2020-05-27 23:19 | P.EN ---
Notified of the patient's fever. Reviewed the chart and discussed case in detail with RN. Due to on-going altered mentation, heightened concern for possible meningitis. The patient was started on broad-spectrum coverage including ampicillin. Discussed the case with on-call anesthesiologist who will come in tonight to do an LP.
[2020-05-27] MEDS: AMPICILLIN 2,000 MG in SODIUM CHLORIDE 0.9% 100 ML IVPB SCH (23:26)
[2020-05-28 00:26] LABS: INR 1.2 (<1.2); Partial Thromboplastin Time 25.3 sec (22.0-30.0); Prothrombin Time 12.3 sec (9.0-12.0)
[2020-05-28] MEDS: CEFEPIME 2 GM in SODIUM CHLORIDE 0.9% 100 ML IVPB SCH ×2 (00:30→10:17)
[2020-05-28] MEDS: HEPARIN SODIUM,PORCINE 5,000 UNIT/ML 1 ML VIAL SQ SCH ×4 (00:45→23:59)
[2020-05-28] MEDS: ACETAMINOPHEN SUPPOSITORY 650 MG SUPP RECTAL PRN ×3 (00:54→21:36)
--- NOTE | 2020-05-28 03:22 | P.EN ---
Discussed the case with the patient's [id number] (Stephani [phone]) who noted that the patient had not been herself since she underwent a hip-revision surgery in the beginning of April. She noted that she had since been "out of it" and unable to function like how she used to. She does not feel that the patient would have wanted to undergo any further aggressive interventions or any invasive procedures. She thereby refused the consent for the LP and noted that she wants us to "quit poking and proding her". Discussed with Ms Styles in detail regarding the possible reversible nature of her current illness and the need for an immediate LP. She verbalized the risks and noted that she doesn't wish for us to perform the LP at this time.
[2020-05-28] MEDS: SODIUM CHLORIDE 0.9% 1,000 ML IV SCH ×3 (05:09→19:51)
[2020-05-28] MEDS: AMPICILLIN 2,000 MG in SODIUM CHLORIDE 0.9% 100 ML IVPB SCH ×5 (05:11→19:59)
[2020-05-28 06:15] LABS: Glucose,Whole Blood 151 mg/dL (75-99)
[2020-05-28] MEDS: INSULIN ASPART (NovoLOG) 100 UNIT/ML VIAL SQ SCH ×4 (06:16→21:39)
--- NOTE | 2020-05-28 10:38 | P.PN ---
Subjective Progress Note Date: 05/28/20 Patient was spiking a fever yesterday with a T-max of 102.3 on 05/28/2020 around midnight. On 05/27/2020 around the patient temperature was 101.8. The heart rate has been ranging between 100s to 120s. The nurse contacted by the primary team and because of fevers indicate ongoing and altered mental status change there is a suspicion of meningitis. Therefore the patient was started on broad-spectrum coverage (Ceftriaxone and Vancomycin) including ampicillin. Anesthesiologist consulted for lumbar puncture. The primary team spoke with the patient's [id number] (Mehul) via phone and they notified her of the suspicion of meningitis and they want to do a lumbar puncture and the she refused to give consent. Infection disease team was also consulted. Per the patient [id number] she stated that the patient has been "out of it" and unable to function like how she is to do. She hasn't been herself since she went hip revision surgery in the beginning of April. Upon seeing the patient today, she was tremolous throughout and not verbally responsive. Objective - Vital Signs Vital signs: Vital Signs Temp 99.1 F 05/28/20 06:46 Pulse 92 05/28/20 04:00 Resp 24 05/28/20 04:00 BP 178/91 05/28/20 04:00 Pulse Ox 95 05/28/20 04:00 Intake & Output 05/27/20 05/28/20 05/28/20 18:59 06:59 18:59 Intake Total 0 Output Total 0 0 400 Balance 0 0 -400 Weight 97.1 kg 95 kg Intake: Oral 0 Output: Urine 400 Stool 0 0 Other: Voiding Method Diaper Indwelling Catheter # Voids 2 # Bowel Movements 0 - Exam GENERAL: The patient is lying and seemed restless upon being awake. NEUROLOGICAL: Limited because of patient condition Higher mental function: The patient opens eyes to verbal stimuli. Not verbally responsive or following commands. awake and not verbally responsive or following commands. All she continues to say is "leave me alone". Cranial nerves: The pupils are round, 3-4mm but did not assess pupil reactive because of lack of cooperation. Primary gaze is midline. Facial sensation unable to assess. No facial weakness noted at baseline. Hearing is unable to assess. Motor: Gait is deferred because of lack of cooperation. The strength is limited because of her condition. She was having tremors of all extremities upon being awakes but without stimulation she closes eyes and no tremor is noted. Cerebellum: Unable to assess Sensation: Seemed intact to painful stimuli throughout. Reflexes (right/left): Unable to assess because of her cooperation. Plantars are mute bilaterally. - Labs CBC & Chem 7: 05/26/20 00:28 05/28/20 12:11 Labs: Abnormal Lab Results - Last 24 Hours (Table) 05/27/20 05/27/20 05/27/20 Range/Units 12:15 18:22 20:37 PT (9.0-12.0) sec INR (<1.2) ABG pCO2 (35-45) mmHg ABG pO2 (83-108) mmHg ABG HCO3 (21-25) mmol/L POC Glucose (mg/dL) 137 H 152 H 138 H (75-99) mg/dL 05/27/20 05/27/20 05/28/20 Range/Units 22:53 23:51 06:13 PT 12.3 H (9.0-12.0) sec INR 1.2 H (<1.2) ABG pCO2 31 L (35-45) mmHg ABG pO2 73 L (83-108) mmHg ABG HCO3 20 L (21-25) mmol/L POC Glucose (mg/dL) 151 H (75-99) mg/dL Assessment and Plan Assessment: This is a 84-year-old woman that was transferred from [facility] where she presented on 05/21/20 with initial complaining of shortness of breath. She has Altered mental status and was transferred for escalation of care. Per medical records, patient's family had reported the patient had hip placement revision surgery in April 2020 and since then the patient has not been herself then though had continue to meet her ADLs and lives by herself. Delerium. One of causes are underlying pneumonia, uncontrolled hypertension and hospital stay. Also there is concern for meningoencephalitis. There is concern for meningoencephalistis Uncontrolled hypertension Possible community acquired pneumonia (per Primary team) Diabetes mellitus Plan: She received Keppra 1 gm (around 00:44 on 05/26/20) by the primary team at our facility and that was not start any the maintenance seizure medication and they felt the seizure was less likely. Routine EEG on 05/26/2020 showed the tobacco slowing is consistent with moderate to severe encephalopathy of nonspecific etiology. There are no focal slowing, epileptiform discharges or seizure seen during the on the study. There are significant myogenic artifact throughout the study. As a result of the EEG and there is no clinical seizure episode therefore I'll not start the patient on antiepileptic drug at this time. She was started on broad-spectrum antibiotics including ampicillin by the primary team for the suspicion of the meningitis. [id number] refused lumbar puncture. Infection disease is on board and we'll defer antibiotic and infection now workup to them. TSH: 0.416, free T4: 2.31. Vitamin B12: 1419. folate: pending. Ammonia level <9. Urinalysis: no UTI. During the day have the lights on and open the window curtains while opposite at night. Consider Seroquel low dose PRN if needed for agitation. Currently the patient is on hormonal 2 mg IM every 4 hours when necessary for agitation. Again I recommend Seroquel over Haldol. We'll defer the treatment of any underlying pneumonia to the primary team. We'll defer management of her hypertension as well as her diabetes to the primary team. Per Primary there seem to be a family dynamic and regarding person making decisi on on her behalf. The plan was discussed with the primary team. There is no neurology service over the weekend. Please Perfect serve me if needed. Giancarlo Ledezma M.D. Neuro-hospitalist Time with Patient: Less than 30
[2020-05-28] MEDS: lisinopriL 10 MG TAB PO SCH (11:49)
[2020-05-28] MEDS: THIAMINE 100 MG TAB PO SCH (11:49)
[2020-05-28] MEDS: ASPIRIN 81 MG PO SCH ×2 (11:49→19:50)
[2020-05-28] MEDS: MULTIVITAMINS, THERA 1 EACH TAB PO SCH (11:49)
[2020-05-28] MEDS: METOPROLOL TARTRATE 12.5 MG TAB PO SCH ×2 (11:49→19:50)
[2020-05-28] MEDS: FOLIC ACID 1 MG TAB PO SCH (11:49)
[2020-05-28 12:08] LABS: Glucose,Whole Blood 134 mg/dL (75-99)
[2020-05-28 12:47] LABS: Calcium 9.1 mg/dL (8.4-10.2); Magnesium 1.5 mg/dL (1.6-2.3); Potassium 3.5 mmol/L (3.5-5.1)
--- NOTE | 2020-05-28 13:00 | P.PN ---
Subjective Progress Note Date: 05/28/20 Pt has developed fevers despite levoquin up to 102.1 and appears to have declining mental exam status and rigors. Was broadened to meningitic therapy last night, and ID consult pending today Objective - Vital Signs Vital signs: Vital Signs Temp 98.1 F 05/28/20 11:44 Pulse 76 05/28/20 11:44 Resp 20 05/28/20 11:44 BP 176/77 05/28/20 11:44 Pulse Ox 96 05/28/20 11:44 Intake & Output 05/27/20 05/28/20 05/28/20 18:59 06:59 18:59 Intake Total 0 0 Output Total 0 0 400 Balance 0 0 -400 Weight 97.1 kg 95 kg Intake: Oral 0 0 Output: Urine 400 Stool 0 0 Other: Voiding Method Diaper Indwelling Catheter Indwelling Catheter # Voids 2 0 # Bowel Movements 0 0 - Exam Gen: asleep, resting comfortably HEENT: normocephalic, atraumatic, good hearing acuity, moist mucous membranes Resp: CTAB, good air exchange, no accessory muscle use, no wheezes, crackles, rhonchi CVS: good distal perfusion x 4, RRR, no murmurs, clicks, gallops GI: soft, NTTP, ND : no SPT, no CVAT, khan catheter not present MSK: no pitting edema, no clubbing Neuro: non-focal, no sensory deficits, appropriate tone - Labs CBC & Chem 7: 05/26/20 00:28 05/28/20 12:11 Labs: Abnormal Lab Results - Last 24 Hours (Table) 05/27/20 05/27/20 05/27/20 Range/Units 18:22 20:37 22:53 PT (9.0-12.0) sec INR (<1.2) ABG pCO2 31 L (35-45) mmHg ABG pO2 73 L (83-108) mmHg ABG HCO3 20 L (21-25) mmol/L Chloride (98-107) mmol/L Carbon Dioxide (22-30) mmol/L BUN (7-17) mg/dL Glucose (74-99) mg/dL POC Glucose (mg/dL) 152 H 138 H (75-99) mg/dL Magnesium (1.6-2.3) mg/dL 05/27/20 05/28/20 05/28/20 Range/Units 23:51 06:13 11:59 PT 12.3 H (9.0-12.0) sec INR 1.2 H (<1.2) ABG pCO2 (35-45) mmHg ABG pO2 (83-108) mmHg ABG HCO3 (21-25) mmol/L Chloride (98-107) mmol/L Carbon Dioxide (22-30) mmol/L BUN (7-17) mg/dL Glucose (74-99) mg/dL POC Glucose (mg/dL) 151 H 134 H (75-99) mg/dL Magnesium (1.6-2.3) mg/dL 05/28/20 Range/Units 12:11 PT (9.0-12.0) sec INR (<1.2) ABG pCO2 (35-45) mmHg ABG pO2 (83-108) mmHg ABG HCO3 (21-25) mmol/L Chloride 113 H (98-107) mmol/L Carbon Dioxide 19 L (22-30) mmol/L BUN 31 H (7-17) mg/dL Glucose 139 H (74-99) mg/dL POC Glucose (mg/dL) (75-99) mg/dL Magnesium 1.5 L (1.6-2.3) mg/dL Assessment and Plan Assessment: Acute delirium of unclear etiology, seizure versus meningitis/encephalitis versus septic encephalopathy -Continue to reorient -Close monitoring -Fall precautions -Continue to treat underlying cause of likely community acquired pneumonia -UA unremarkable -Neurology consult -S/p 1g of Keppra -Neuro-checks -will obtain LP and herpes PCR on CSF -ID consult Community acquired pnuemonia -C/w Levaquin (allergic to macrolides) Type 2 DM -BECKY with FS -Check A1C Elevated troponin -Repeat in AM DVT prophylaxis -Heparin subq The patient is admitted with an anticipated greater than 2 midnight stay for evaluation of AMS CODE STATUS: Full Code Discussed with: RN, patient Anticipated discharge date: 2-[address]: Home/[facility]
[2020-05-28] MEDS ORDERED: ACYCLOVIR SODIUM 750 MG in SODIUM CHLORIDE 0.9% 250 ML IV SCH (14:00)
--- NOTE | 2020-05-28 15:54 | P.PN ---
Progress Note - Text Progress Note Date: 05/28/20 (5450) [id number] for lumbar puncture. Ordered foraltered mental status. Coagulopathies: INR 1.2. Platelets 283. No antiplatelets. Heparin subcu 1019 Consent obtained and confirmed Timeout performed Sterile protocol was used throughout procedure. L3 4 was identified with patient lying right side up.. Chlorhexidine 2 was used to clean the patient's back. Lidocaine 1% 2 mL was used as local and was infiltrated. Spinal needle 20-gauge 3-1/2 inches was used in 2 attempt. CSF was obtained. No heme. Specimens collected 4-2 mL each. Needle was withdrawn and Band-Aid applied. Patient tolerated procedure well without complication. Opening pressure 16
[2020-05-28 16:21] LABS: Appearance,CSF Clear; CSF Tube Number 4
[2020-05-28 16:22] LABS: Nucleated Cells, CSF 0 u/L (0-5); Red Blood Cell,CSF 3 u/L (0-10)
[2020-05-28 16:26] LABS: Glucose,CSF 86 mg/dL (40-70); Total Protein,CSF 80 mg/dL (12-60)
[2020-05-28 17:16] LABS: Glucose,Whole Blood 116 mg/dL (75-99)
[2020-05-28] MEDS: LABETALOL 5 MG/ML VIAL MDV IVP PRN ×2 (19:58→23:52)
[2020-05-28] MEDS ORDERED: VANCOMYCIN 1,500 MG in SODIUM CHLORIDE 0.9% 250 ML IVPB SCH (20:00)
[2020-05-28 20:17] LABS: Glucose,Whole Blood 124 mg/dL (75-99)
[2020-05-28] MEDS ORDERED: CEFEPIME 2 GM in SODIUM CHLORIDE 0.9% 100 ML IVPB SCH (22:02)
[2020-05-28] MEDS ORDERED: AMPICILLIN 2,000 MG in SODIUM CHLORIDE 0.9% 100 ML IVPB SCH (22:50)
--- NOTE | 2020-05-28 22:58 | P.CONS ---
History of Present Illness - Reason for Consult Consult date: 05/28/20 Fever and possible meningitis Requesting physician: German Menezes - Chief Complaint Mental status changes x few days - History of Present Illness Patient is 84-year-old female who apparently presented to [facility] on 05/21/2020 with complaints of increasing shortness of breath patient was noticed to have right lower lobe infiltrate and concern for pneumonia Covid testing was negative patient subsequently has been transferred to [facility] on 05/25/2020 for decline in her mental status on arrival to the hospital patient was afebrile however the patien did have a low-grade fever 100.2 and the patient spiked a fever of 101.8 last night and 102 degree formula around midnight decrease for her around midnight, the patient did have a normal white count on admission and it has not been repeated since then, urine was negative as well on admission, patient did have normal liver enzymes patient did have a CT of the brain that was negative for any bleed chest x-ray no acute findings in the chest repeat chest x-ray last evening which was chronic changes and patchy left basilar atelectasis or infiltrate no significant change from 1 day earlier patient was started on ampicillin cefepime and vancomycin with concern for possible meningitis patient did have a LP completed by anesthesia this afternoon and the patient did have a glucose of 86 protein 80 nucleated cells were negative infectious was consulted for further management and most information has been obtained from review of chart.nursing staff and the patient is currently unable to provide any history she did respond to her name patient is currently breathing comfortably on room air she also have a recent right hip surgery however the incision looks clean with no cellulitis and the patient do not have any open wounds Review of Systems Positive points has been mentioned in HPI complete review could not be obtained because of his underlying mental status Past Medical History Past Medical History: Diabetes Mellitus, Hyperlipidemia, Hypertension Additional Past Medical History / Comment(s): tremor, anemia, colitis, anxiety History of Any Multi-Drug Resistant Organisms: None Reported Past Surgical History: Joint Replacement Additional Past Surgical History / Comment(s): total R hip replacement Past Anesthesia/Blood Transfusion Reactions: No Reported Reaction Smoking Status: Never smoker Medications and Allergies Home Medications Medication Instructions Recorded Confirmed Type Acetaminophen [Tylenol] 650 mg PO Q6H PRN 05/25/20 05/25/20 History Aspirin [Adult Low Dose Aspirin EC] 81 mg PO Q12H 05/25/20 05/25/20 History Biotin 10,000 mcg PO DAILY 05/25/20 05/25/20 History Celecoxib [CeleBREX] 200 mg PO HS 05/25/20 05/25/20 History Cholecalciferol [Vitamin D3 (25 2,000 unit PO DAILY 05/25/20 05/25/20 History Mcg = 1000 Iu)] Chromium Picolinate 200 mcg PO DAILY 05/25/20 05/25/20 History Cinnamon Bark [Cinnamon] 1,000 mg PO DAILY 05/25/20 05/25/20 History Enalapril Maleate 10 mg PO DAILY 05/25/20 05/25/20 History Ferrous Sulfate [Iron (65 MG 325 mg PO W/BRKFST 05/25/20 05/25/20 History Elemental)] HYDROcodone/APAP 5-325MG [[place] 1 tab PO Q4-6H 05/25/20 05/25/20 History 5-325] Lane Natural Advanced Tart Person 1 tab PO DAILY 05/25/20 05/25/20 History 465mg Metoprolol Tartrate [Lopressor] 12.5 mg PO BID 05/25/20 05/25/20 History Multivitamins, Thera [Multivitamin 1 tab PO DAILY 05/25/20 05/25/20 History (formulary)] Nortriptyline HCl [Pamelor] 50 mg PO DAILY 05/25/20 05/25/20 History [place]-3 Fatty Acids/Fish Oil [Fish 3 tab PO DAILY 05/25/20 05/25/20 History Oil 1,000 mg Softgel] Sennosides [Senna] 8.6 mg PO HS 05/25/20 05/25/20 History Triple Magnesium Complex 400mg 1 tab PO DAILY 05/25/20 05/25/20 History Turmeric Powder 750mg 1 tab PO DAILY 05/25/20 05/25/20 History Vitamin E 400 unit PO DAILY 05/25/20 05/25/20 History hydrOXYzine HCL [Atarax] 25 mg PO DAILY PRN 05/25/20 05/26/20 History metFORMIN HCL [Glucophage] 500 mg PO DAILY 05/25/20 05/26/20 History traZODone HCL [Desyrel] 50 mg PO HS 05/25/20 05/25/20 History Allergies Allergy/AdvReac Type Severity Reaction Status Date / Time acetaminophen [From Percocet] Allergy Unknown Verified 05/25/20 22:26 erythromycin base Allergy Unknown Verified 05/25/20 22:26 oxycodone [From Percocet] Allergy Unknown Verified 05/25/20 22:26 sulfamethoxazole Allergy Unknown Verified 05/25/20 22:26 [From Septra] trimethoprim [From Septra] Allergy Unknown Verified 05/25/20 22:26 Physical Exam Vitals: Vital Signs Temp Pulse Resp BP Pulse Ox 05/28/20 15:54 98 F 68 20 173/93 97 05/28/20 11:44 98.1 F 76 20 176/77 96 05/28/20 08:00 96.6 F L 64 20 148/69 94 L 05/28/20 06:46 99.1 F 05/28/20 04:00 99.8 F H 92 24 178/91 95 05/28/20 02:00 71 24 05/28/20 01:55 113 H 176/93 05/28/20 00:00 102.3 F H 101 H 24 184/82 92 L Intake and Output 05/28/20 05/28/20 05/28/20 06:59 14:59 22:59 Intake Total 0 0 750 Output Total 0 400 800 Balance 0 -400 -50 Intake: Intake, IV Titration 750 Amount Acyclovir Sodium 750 mg 250 In Sodium Chloride 0.9% 250 ml @ 265 mls/hr IV Q8H [facility]I Rx#:[id number] Ampicillin 2,000 mg In 100 Sodium Chloride 0.9% 100 ml @ 200 mls/hr IVPB Q6H MARI Rx#:[id number] Cefepime 2 gm In Sodium 100 Chloride 0.9% 100 ml @ 25 mls/hr IVPB Q12HR MARI Rx #:[id number] Sodium Chloride 0.9% 1, 300 000 ml @ 100 mls/hr IV . Q10H MARI Rx#:[id number] Oral 0 0 0 Output: Urine 400 800 Stool 0 Other: Voiding Method Indwelling Catheter Indwelling Catheter Indwelling Catheter # Voids 0 # Bowel Movements 0 0 0 Weight 95 kg GENERAL DESCRIPTION: An elderly female lying in bed, no distress. No tachypnea or accessory muscle of respiration use. HEENT: Shows Pallor , no scleral icterus. Oral mucous membrane is dry. No pharyngeal erythema or thrush NECK: Trachea central, no thyromegaly. LUNGS: Unlabored breathing. Decreased breath sounds at the base. No wheeze or crackle. HEART: S1, S2, regular rate and rhythm. No loud murmur ABDOMEN: Soft, no tenderness , guarding or rigidity, no organomegaly EXTREMITIES: No edema of feet. Right hip surgical site and cellulitis SKIN: No rash, no masses palpable. NEUROLOGICAL: The patient is lethargic but arousable orientation could not be determined. Results CBC & Chem 7: 05/26/20 00:28 05/28/20 12:11 Labs: Abnormal Lab Results - Last 24 Hours (Table) 05/26/20 05/27/20 05/27/20 Range/Units 10:18 20:37 22:53 PT (9.0-12.0) sec INR (<1.2) ABG pCO2 31 L (35-45) mmHg ABG pO2 73 L (83-108) mmHg ABG HCO3 20 L (21-25) mmol/L Chloride (98-107) mmol/L Carbon Dioxide (22-30) mmol/L BUN (7-17) mg/dL Glucose (74-99) mg/dL POC Glucose (mg/dL) 138 H (75-99) mg/dL Magnesium (1.6-2.3) mg/dL RBC Folate 1,391 H (280 - 791) ng/mL CSF Glucose (40-70) mg/dL CSF Total Protein (12-60) mg/dL 05/27/20 05/28/20 05/28/20 Range/Units 23:51 06:13 11:59 PT 12.3 H (9.0-12.0) sec INR 1.2 H (<1.2) ABG pCO2 (35-45) mmHg ABG pO2 (83-108) mmHg ABG HCO3 (21-25) mmol/L Chloride (98-107) mmol/L Carbon Dioxide (22-30) mmol/L BUN (7-17) mg/dL Glucose (74-99) mg/dL POC Glucose (mg/dL) 151 H 134 H (75-99) mg/dL Magnesium (1.6-2.3) mg/dL RBC Folate (280 - 791) ng/mL CSF Glucose (40-70) mg/dL CSF Total Protein (12-60) mg/dL 05/28/20 05/28/20 05/28/20 Range/Units 12:11 15:45 17:14 PT (9.0-12.0) sec INR (<1.2) ABG pCO2 (35-45) mmHg ABG pO2 (83-108) mmHg ABG HCO3 (21-25) mmol/L Chloride 113 H (98-107) mmol/L Carbon Dioxide 19 L (22-30) mmol/L BUN 31 H (7-17) mg/dL Glucose 139 H (74-99) mg/dL POC Glucose (mg/dL) 116 H (75-99) mg/dL Magnesium 1.5 L (1.6-2.3) mg/dL RBC Folate (280 - 791) ng/mL CSF Glucose 86 H (40-70) mg/dL CSF Total Protein 80 H (12-60) mg/dL Microbiology - Last 24 Hours (Table) 05/28/20 15:45 CSF Gram Stain - Preliminary Cerebral Spinal Fluid CSF Culture - Preliminary Assessment and Plan Assessment: 1- patient with an episode of fever last few days and this patient has been transferred to this facility for evaluation of mental status changes patient did [facility] with [facility] of breath, patient did have a negative covid testing however her features are more suggestive for viral infection than a bacterial with concern for possible encephalitis versus covid 19 infection, clinically not behaving as a bacterial meningitis, UA is negative and abdominal soft and clinical examination 2-Patient with multiple antibiotic ALLERGIES that would limit the number of antibiotic safe to use (1) Fever Current Visit: Yes Status: Acute Code(s): R50.9 - FEVER, UNSPECIFIED SNOMED Code(s): 320274661 Plan: 1- we will check nasopharyngeal swab for covid 19 and influenza 2-we will check inflammatory markers with a.m. labs 3-continue with acyclovir and waiting for HSV DNA by PCR to be completed ,however discontinue the vancomycin We will follow on clinical condition and cultures to further adjust medication if needed Thank you for this consultation will follow this patient with you Time with Patient: Greater than 30
[2020-05-29 00:40] LABS: SARS-CoV-2 RNA Rapid Abbott Not Detected (Not Detectd)
[2020-05-29] MEDS: CEFEPIME 2 GM in SODIUM CHLORIDE 0.9% 100 ML IVPB SCH ×3 (01:20→20:30)
[2020-05-29] MEDS: LABETALOL 5 MG/ML VIAL MDV IVP PRN ×4 (04:58→20:45)
[2020-05-29] MEDS: ACETAMINOPHEN SUPPOSITORY 650 MG SUPP RECTAL PRN (04:59)
[2020-05-29] MEDS: ACYCLOVIR SODIUM 750 MG in SODIUM CHLORIDE 0.9% 250 ML IV SCH ×2 (05:05→13:42)
[2020-05-29 06:06] LABS: Glucose,Whole Blood 115 mg/dL (75-99)
[2020-05-29] MEDS: INSULIN ASPART (NovoLOG) 100 UNIT/ML VIAL SQ SCH ×4 (06:11→20:30)
[2020-05-29 08:26] LABS: Albumin 2.5 g/dL (3.5-5.0); Calcium 9.3 mg/dL (8.4-10.2); Potassium 3.5 mmol/L (3.5-5.1); Total Bilirubin 0.6 mg/dL (0.2-1.3)
[2020-05-29 08:42] LABS: Basophils # (A) 0.1 k/uL (0-0.2); Basophils % (A) 1 %; Eosinophils # (A) 0.3 k/uL (0-0.7); Eosinophils % (A) 4 %; HCT 31.7 % (34.0-46.0); HGB 10.6 gm/dL (11.4-16.0); Lymphocytes # (A) 1.4 k/uL (1.0-4.8); Lymphocytes % (A) 16 %; MCH 31.3 pg (25.0-35.0); MCHC 33.3 g/dL (31.0-37.0); MCV 94.2 fL (80.0-100.0); Mean Platelet Volume 7.8; Monocytes # (A) 0.7 k/uL (0-1.0); Monocytes % (A) 8 %; Neutrophils # (A) 6.2 k/uL (1.3-7.7); Neutrophils % (A) 71 %; Platelet Count 329 k/uL (150-450); RBC 3.37 m/uL (3.80-5.40); RDW 14.8 % (11.5-15.5); WBC 8.7 k/uL (3.8-10.6)
[2020-05-29 08:58] LABS: C Reactive Protein 338.1 mg/L (<10.0)
[2020-05-29] MEDS: HEPARIN SODIUM,PORCINE 5,000 UNIT/ML 1 ML VIAL SQ SCH ×2 (10:13→16:38)
[2020-05-29] MEDS: ASPIRIN 81 MG PO SCH ×2 (10:14→20:30)
[2020-05-29] MEDS: lisinopriL 10 MG TAB PO SCH (10:14)
[2020-05-29] MEDS: SODIUM CHLORIDE 0.9% 1,000 ML IV SCH ×2 (10:14→20:32)
[2020-05-29] MEDS: METOPROLOL TARTRATE 12.5 MG TAB PO SCH ×2 (10:14→20:30)
[2020-05-29] MEDS: FOLIC ACID 1 MG TAB PO SCH (10:14)
[2020-05-29] MEDS: THIAMINE 100 MG TAB PO SCH (10:15)
[2020-05-29] MEDS: MULTIVITAMINS, THERA 1 EACH TAB PO SCH (10:15)
[2020-05-29 11:22] LABS: Glucose,Whole Blood 111 mg/dL (75-99)
--- NOTE | 2020-05-29 12:37 | P.PN ---
Subjective Progress Note Date: 05/29/20 Patients LP was done yesterday and showed high protein, high glucose, but no nucleated cells. Pt is slightly more interactive with me today, but still diffuse myoclonus. Objective - Vital Signs Vital signs: Vital Signs Temp 99.3 F 05/29/20 09:30 Pulse 81 05/29/20 09:30 Resp 22 05/29/20 09:30 BP 180/76 05/29/20 09:30 Pulse Ox 96 05/29/20 09:30 Intake & Output 05/28/20 05/29/20 05/29/20 18:59 06:59 18:59 Intake Total 750 0 Output Total 1200 300 30 Balance -450 -300 -30 Weight 96.5 kg Intake: Intake, IV Titration 750 Amount Acyclovir Sodium 750 mg 250 In Sodium Chloride 0.9% 250 ml @ 265 mls/hr IV Q8H [facility]I Rx#:[id number] Ampicillin 2,000 mg In 100 Sodium Chloride 0.9% 100 ml @ 200 mls/hr IVPB Q6H MARI Rx#:[id number] Cefepime 2 gm In Sodium 100 Chloride 0.9% 100 ml @ 25 mls/hr IVPB Q12HR MARI Rx #:[id number] Sodium Chloride 0.9% 1, 300 000 ml @ 100 mls/hr IV . Q10H [facility] Rx#:[id number] Oral 0 0 Output: Urine 1200 300 30 Uretheral (Khan) 30 Stool 0 Other: Voiding Method Indwelling Catheter Indwelling Catheter # Voids 0 # Bowel Movements 0 0 - Exam Gen: awake, diffuse myoclonus HEENT: normocephalic, atraumatic, good hearing acuity, moist mucous membranes Resp: CTAB, good air exchange, no accessory muscle use, no wheezes, crackles, rhonchi CVS: good distal perfusion x 4, RRR, no murmurs, clicks, gallops GI: soft, NTTP, ND : no SPT, no CVAT, khan catheter not present MSK: no pitting edema, no clubbing Neuro: non-focal, no sensory deficits, appropriate tone - Labs CBC & Chem 7: 05/29/20 07:45 05/29/20 07:45 Labs: Abnormal Lab Results - Last 24 Hours (Table) 05/26/20 05/28/20 05/28/20 Range/Units 10:18 12:11 15:45 RBC (3.80-5.40) m/uL Hgb (11.4-16.0) gm/dL Hct (34.0-46.0) % D-Dimer (<0.60) mg/L FEU Chloride 113 H (98-107) mmol/L Carbon Dioxide 19 L (22-30) mmol/L BUN 31 H (7-17) mg/dL Glucose 139 H (74-99) mg/dL POC Glucose (mg/dL) (75-99) mg/dL Magnesium 1.5 L (1.6-2.3) mg/dL C-Reactive Protein (<10.0) mg/L Total Protein (6.3-8.2) g/dL Albumin (3.5-5.0) g/dL RBC Folate 1,391 H (280 - 791) ng/mL CSF Glucose 86 H (40-70) mg/dL CSF Total Protein 80 H (12-60) mg/dL 05/28/20 05/28/20 05/29/20 Range/Units 17:14 20:15 06:05 RBC (3.80-5.40) m/uL Hgb (11.4-16.0) gm/dL Hct (34.0-46.0) % D-Dimer (<0.60) mg/L FEU Chloride (98-107) mmol/L Carbon Dioxide (22-30) mmol/L BUN (7-17) mg/dL Glucose (74-99) mg/dL POC Glucose (mg/dL) 116 H 124 H 115 H (75-99) mg/dL Magnesium (1.6-2.3) mg/dL C-Reactive Protein (<10.0) mg/L Total Protein (6.3-8.2) g/dL Albumin (3.5-5.0) g/dL RBC Folate (280 - 791) ng/mL CSF Glucose (40-70) mg/dL CSF Total Protein (12-60) mg/dL 05/29/20 05/29/20 05/29/20 Range/Units 07:45 07:45 07:45 RBC 3.37 L (3.80-5.40) m/uL Hgb 10.6 L (11.4-16.0) gm/dL Hct 31.7 L (34.0-46.0) % D-Dimer 4.92 H (<0.60) mg/L FEU Chloride 115 H (98-107) mmol/L Carbon Dioxide (22-30) mmol/L BUN 35 H (7-17) mg/dL Glucose 117 H (74-99) mg/dL POC Glucose (mg/dL) (75-99) mg/dL Magnesium (1.6-2.3) mg/dL C-Reactive Protein 338.1 H (<10.0) mg/L Total Protein 5.0 L (6.3-8.2) g/dL Albumin 2.5 L (3.5-5.0) g/dL RBC Folate (280 - 791) ng/mL CSF Glucose (40-70) mg/dL CSF Total Protein (12-60) mg/dL 05/29/20 Range/Units 11:21 RBC (3.80-5.40) m/uL Hgb (11.4-16.0) gm/dL Hct (34.0-46.0) % D-Dimer (<0.60) mg/L FEU Chloride (98-107) mmol/L Carbon Dioxide (22-30) mmol/L BUN (7-17) mg/dL Glucose (74-99) mg/dL POC Glucose (mg/dL) 111 H (75-99) mg/dL Magnesium (1.6-2.3) mg/dL C-Reactive Protein (<10.0) mg/L Total Protein (6.3-8.2) g/dL Albumin (3.5-5.0) g/dL RBC Folate (280 - 791) ng/mL CSF Glucose (40-70) mg/dL CSF Total Protein (12-60) mg/dL Microbiology - Last 24 Hours (Table) 05/28/20 15:45 CSF Gram Stain - Preliminary Cerebral Spinal Fluid CSF Culture - Preliminary 05/27/20 18:41 Blood Culture - Preliminary Blood No Growth after 24 hours Assessment and Plan Assessment: Acute delirium of unclear etiology, seizure versus meningitis/encephalitis juaquin meg septic encephalopathy -Continue to reorient -Close monitoring -Fall precautions -Continue to treat underlying cause of likely community acquired pneumonia -UA unremarkable -Neurology consult -S/p 1g of Keppra -Neuro-checks -will obtain LP and herpes PCR on CSF -ID consult Community acquired pnuemonia -C/w Levaquin (allergic to macrolides) Type 2 DM -BECKY with FS -Check A1C Elevated troponin -Repeat in AM DVT prophylaxis -Heparin subq The patient is admitted with an anticipated greater than 2 midnight stay for evaluation of AMS CODE STATUS: Full Code Discussed with: RN, patient Anticipated discharge date: 2-[address]: Home/[facility]
--- NOTE | 2020-05-29 14:25 | US ---
EXAMINATION TYPE: US venous doppler duplex LE DATE OF EXAM: 05/29/2020 1:46 PM COMPARISON: NONE CLINICAL HISTORY: Rule out DVT. poor historian SIDE PERFORMED: Bilateral TECHNIQUE: The lower extremity deep venous system is examined utilizing real time linear array sonog silvina with graded compression, doppler sonography and color-flow sonography. VESSELS IMAGED: Common Femoral Vein Deep Femoral Vein Greater Saphenous Vein * Femoral Vein Popliteal Vein Small Saphenous Vein * Proximal Calf Veins (* superficial vessels) Limited due to patient body habitus and unable to move leg due to pain. Right Leg: Negative for DVT Left Leg: Negative for DVT IMPRESSION: No evidence of deep vein thrombosis in both legs.
[2020-05-29 16:48] LABS: Glucose,Whole Blood 110 mg/dL (75-99)
[2020-05-29 20:31] LABS: Glucose,Whole Blood 125 mg/dL (75-99)
--- NOTE | 2020-05-30 00:04 | PN ---
PROGRESS NOTE DATE OF SERVICE: 05/29/2020 REASON FOR FOLLOWUP: Fever. INTERVAL HISTORY: Patient is currently afebrile. The patient is currently breathing comfortably on room air. The patient did open eyes to the name but did not answer any questions. No vomiting. No diarrhea. On the changes by the nursing staff PHYSICAL EXAMINATION: Her blood pressure is 118/78 with a pulse of 73, temperature 98.2. She is 96% on room air. General description is an elderly female lying in bed in no distress respiratory system: Unlabored breathing, decreased breath sounds in the base. No wheeze. Heart S1, S2. Regular rate and rhythm. ABDOMEN: Soft, no tenderness. Extremities are edema of the feet. LABS: Hemoglobin is 10.8, white count 8.7, creatinine is 4.92, BUN of 35, creatinine 1.0. CRP is 338 with a bronchus of 0.28. Influenza PCR was negative: Two 7- as well. DIAGNOSTIC IMPRESSION AND PLAN: Patient with a fever in this patient who did have extensive workup including an LP with no clear focus of infection. Patient is currently covered with cefepime as well as the acyclovir. Waiting for HSV DNA pacing to be continued and monitor clinical course closely. MMODL / IJN: [id number] /
[2020-05-30] MEDS: HEPARIN SODIUM,PORCINE 5,000 UNIT/ML 1 ML VIAL SQ SCH ×4 (00:12→23:57)
[2020-05-30] MEDS: ACYCLOVIR SODIUM 750 MG in SODIUM CHLORIDE 0.9% 250 ML IV SCH ×2 (03:34→14:18)
[2020-05-30] MEDS: LABETALOL 5 MG/ML VIAL MDV IVP PRN (03:34)
[2020-05-30 06:08] LABS: Glucose,Whole Blood 105 mg/dL (75-99)
[2020-05-30] MEDS: INSULIN ASPART (NovoLOG) 100 UNIT/ML VIAL SQ SCH ×4 (06:10→21:03)
[2020-05-30] MEDS: SODIUM CHLORIDE 0.9% 1,000 ML IV SCH ×3 (06:24→19:42)
[2020-05-30] MEDS: MULTIVITAMINS, THERA 1 EACH TAB PO SCH (09:02)
[2020-05-30] MEDS: FOLIC ACID 1 MG TAB PO SCH (09:02)
[2020-05-30] MEDS: lisinopriL 10 MG TAB PO SCH (09:02)
[2020-05-30] MEDS: METOPROLOL TARTRATE 12.5 MG TAB PO SCH ×2 (09:02→19:41)
[2020-05-30] MEDS: THIAMINE 100 MG TAB PO SCH (09:02)
[2020-05-30] MEDS: CEFEPIME 2 GM in SODIUM CHLORIDE 0.9% 100 ML IVPB SCH ×2 (09:02→19:50)
[2020-05-30] MEDS: ASPIRIN 81 MG PO SCH ×2 (09:02→19:40)
[2020-05-30] MEDS: ACETAMINOPHEN SUPPOSITORY 650 MG SUPP RECTAL PRN (09:46)
[2020-05-30 11:46] LABS: Glucose,Whole Blood 118 mg/dL (75-99)
[2020-05-30] MEDS: NITROGLYCERIN OINT 1 INCH/GM PACKET TOPICAL SCH ×3 (11:56→23:57)
--- NOTE | 2020-05-30 12:37 | P.PN ---
Subjective Progress Note Date: 05/30/20 No new complaints. patient does not interact with me today. Appears to have diffuse myoclonus again today. Objective - Vital Signs Vital signs: Vital Signs Temp 99 F 05/30/20 11:53 Pulse 78 05/30/20 11:53 Resp 22 05/30/20 11:53 BP 205/77 05/30/20 11:53 Pulse Ox 93 L 05/30/20 11:53 Intake & Output 05/29/20 05/30/20 05/30/20 18:59 06:59 18:59 Intake Total 1450 100 Output Total 335 400 200 Balance -335 1050 -100 Weight 98 kg Intake: Intake, IV Titration 1450 100 Amount Acyclovir Sodium 750 mg 250 In Sodium Chloride 0.9% 250 ml @ 265 mls/hr IV Q12H [facility] Rx#:[id number] Cefepime 2 gm In Sodium 100 100 Chloride 0.9% 100 ml @ 25 mls/hr IVPB Q12HR [facility] Rx #:[id number] Sodium Chloride 0.9% 1, 1100 000 ml @ 100 mls/hr IV . Q10H [facility]I Rx#:[id number] Oral 0 Output: Urine 335 400 200 Uretheral (Khan) 60 200 Stool 0 Other: Voiding Method Indwelling Catheter Indwelling Catheter Indwelling Catheter - Exam Gen: awake, diffuse myoclonus HEENT: normocephalic, atraumatic, good hearing acuity, moist mucous membranes Resp: CTAB, good air exchange, no accessory muscle use, no wheezes, crackles, rhonchi CVS: good distal perfusion x 4, RRR, no murmurs, clicks, gallops GI: soft, NTTP, ND : no SPT, no CVAT, khan catheter not present MSK: no pitting edema, no clubbing Neuro: non-focal, no sensory deficits, appropriate tone - Labs CBC & Chem 7: 05/29/20 07:45 05/30/20 07:42 Labs: Abnormal Lab Results - Last 24 Hours (Table) 05/29/20 05/29/20 05/29/20 Range/Units 07:45 16:47 20:29 POC Glucose (mg/dL) 110 H 125 H (75-99) mg/dL Procalcitonin 0.28 H (0.02-0.09) ng/mL 05/30/20 05/30/20 Range/Units 06:07 11:45 POC Glucose (mg/dL) 105 H 118 H (75-99) mg/dL Procalcitonin (0.02-0.09) ng/mL Microbiology - Last 24 Hours (Table) 05/27/20 18:41 Blood Culture - Preliminary Blood No Growth after 48 hours 05/28/20 15:45 CSF Gram Stain - Preliminary Cerebral Spinal Fluid CSF Culture - Preliminary Assessment and Plan Assessment: 1. 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 Type II DM 3. Hypertension 84 year old woman with history of DM, recent hip surgery presented as transfer from [place] where she initially presented with some confusion, weakness. She was thought to have septic encephalopthy from CAP seen on CXR and was started on levoquin, however, her agitation worsened. She was transfered after 4 day hospitalization in [place], and on arrival was noted to be agitated with diffuse myoclonus and A+Ox0. Neurology was consulted for suspected s eizures, and initial EEG had signifcant artifact due to diffuse myoclonus. Seizures were felt less likely and patient was taken off of empiric keppra. Patient started to spike high grade fevers up to 102.1, and therefore was broadened from levofloxacin to vanc/cefepime/ampicillin, then later acyclovir. Patient underwent LP which demonstrated high protein and glucose, and 0 WBCs. 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 Pt's DPOA, [id number], Stephani, does not want any aggressive procedures done at this point. If no reversible cause for patient's illness can be found, Stephani would like the patient to be enrolled into inpatient hospice. Acute delirium of unclear etiology, seizure versus meningitis/encephalitis versus septic encephalopathy -Continue to reorient -Close monitoring -Fall precautions -UA unremarkable -Neurology consult -S/p 1g of Keppra -Neuro-checks -will obtain LP and herpes PCR on CSF, pending -ID consult Type 2 DM -BECKY with FS -Check A1C Hypertension - patient cannot take oral medication - currently on labetalol 10mg IV PRN - also added nitro paste 0.5inch q6h PRN Elevated troponin -Repeat in AM DVT prophylaxis -Heparin subq The patient is admitted with an anticipated greater than 2 midnight stay for evaluation of AMS CODE STATUS: DNAR Discussed with: RN, patient Anticipated discharge date: unknown Anticipated discharge place: [facility]
[2020-05-30 16:44] LABS: Glucose,Whole Blood 129 mg/dL (75-99)
[2020-05-30] MEDS: diphenhydrAMINE 50 MG/ML 1 ML VIAL IVP SCH (17:50)
[2020-05-30] MEDS: methylPREDNISolone SOD SUCCI 125 MG/2 ML VIAL IV SCH ×2 (17:53→23:57)
[2020-05-30] MEDS: FAMOTIDINE 20 MG/2 ML VIAL IV SCH (19:45)
[2020-05-30 20:00] LABS: Glucose,Whole Blood 135 mg/dL (75-99)
[2020-05-30 23:55] LABS: Glucose,Whole Blood 144 mg/dL (75-99)
[2020-05-31] MEDS: diphenhydrAMINE 50 MG/ML 1 ML VIAL IVP SCH ×4 (00:02→13:07)
[2020-05-31] MEDS: ACYCLOVIR SODIUM 750 MG in SODIUM CHLORIDE 0.9% 250 ML IV SCH ×2 (02:12→15:43)
--- NOTE | 2020-05-31 04:22 | PN ---
PROGRESS NOTE DATE OF SERVICE: 05/30/2020 REASON FOR FOLLOWUP: Fever. INTERVAL HISTORY: The patient did have fever of 100.3 this morning and the patient has been afebrile since then. The patient remains to be lethargic and is unable to provide any history. No vomiting or diarrhea or any other changes reported by the nursing staff. PHYSICAL EXAMINATION: Blood pressure 165/48, pulse of 85, temperature of 99. She is 94% on room air. General description is an elderly female lying in bed in no distress. RESPIRATORY SYSTEM: Unlabored breathing with decreased breath sounds at the bases. No wheeze. HEART: S1, S2. Regular rate and rhythm. ABDOMEN: Soft, no tenderness. LABS: Creatinine 0.88. CSF culture so far negative. HSV DNA by PCR is pending. DIAGNOSTIC IMPRESSION AND PLAN: Patient with a fever with mental status changes. This patient did have extensive workup including an LP for . The HSV DNA by PCR is still pending. The patient did have negative influenza and COVID testing and the chest x-ray was not suspicious for pneumonia either. The patient at this time is covered with cefepime and acyclovir to continue while waiting for the culture to finalize. We will repeat her inflammatory markers tomorrow. Continue with supportive care. MMODL / IJN: [id number] /
[2020-05-31 06:25] LABS: Glucose,Whole Blood 165 mg/dL (75-99)
[2020-05-31] MEDS: NITROGLYCERIN OINT 1 INCH/GM PACKET TOPICAL SCH ×3 (07:03→18:13)
[2020-05-31] MEDS: methylPREDNISolone SOD SUCCI 125 MG/2 ML VIAL IV SCH ×3 (07:03→18:13)
[2020-05-31] MEDS: INSULIN ASPART (NovoLOG) 100 UNIT/ML VIAL SQ SCH ×4 (07:03→20:59)
[2020-05-31] MEDS: METOPROLOL TARTRATE 12.5 MG TAB PO SCH ×2 (09:20→19:46)
[2020-05-31] MEDS: lisinopriL 10 MG TAB PO SCH (09:20)
[2020-05-31] MEDS: FOLIC ACID 1 MG TAB PO SCH (09:20)
[2020-05-31] MEDS: ASPIRIN 81 MG PO SCH (09:20)
[2020-05-31] MEDS: THIAMINE 100 MG TAB PO SCH (09:20)
[2020-05-31] MEDS: MULTIVITAMINS, THERA 1 EACH TAB PO SCH (09:20)
[2020-05-31] MEDS: FAMOTIDINE 20 MG/2 ML VIAL IV SCH (09:21)
[2020-05-31] MEDS: HEPARIN SODIUM,PORCINE 5,000 UNIT/ML 1 ML VIAL SQ SCH ×2 (09:21→15:43)
[2020-05-31] MEDS: CEFEPIME 2 GM in SODIUM CHLORIDE 0.9% 100 ML IVPB SCH ×2 (09:21→20:57)
[2020-05-31 12:08] LABS: Glucose,Whole Blood 148 mg/dL (75-99)
--- NOTE | 2020-05-31 14:24 | P.PN ---
Subjective Progress Note Date: 05/31/20 Patient was seen and examined at the bedside. She continues to be altered, with myoclonic jerky movements and not following any directions. She continues to have a low-grade temperature of 100.2. Objective - Vital Signs Vital signs: Vital Signs Temp 100.2 F H 05/31/20 12:50 Pulse 83 05/31/20 12:50 Resp 24 05/31/20 12:50 BP 202/89 05/31/20 12:50 Pulse Ox 96 05/31/20 12:50 Intake & Output 05/30/20 05/31/20 05/31/20 18:59 06:59 18:59 Intake Total 100 750 0 Output Total 400 1000 Balance -300 -250 0 Weight 100.5 kg 100.5 kg Intake: Intake, IV Titration 100 750 Amount Acyclovir Sodium 750 mg 250 In Sodium Chloride 0.9% 250 ml @ 265 mls/hr IV Q12H MARI Rx#:[id number] Cefepime 2 gm In Sodium 100 Chloride 0.9% 100 ml @ 25 mls/hr IVPB Q12HR MARI Rx #:[id number] Sodium Chloride 0.9% 1, 500 000 ml @ 100 mls/hr IV . Q10H MARI Rx#:[id number] Oral 0 Output: Urine 400 1000 Uretheral (Caban) 400 Stool 0 Other: Voiding Method Indwelling Catheter Indwelling Catheter Indwelling Catheter - Exam General: Ill-appearing elderly female, appears stated age HEENT: NC/AT, anicteric sclerae, moist conjunctiva, no lid-lag, PERRLA Cardiovascular: S1/S2 wnl, no murmurs, rubs, or gallops Lungs: Clear to auscultation, normal respiratory effort, no accessory muscle use Abdominal: Soft, non-tender, non-distended, no guarding, rebound, or rigidity Skin: Warm, dry Extremities: No edema or contractures Psychiatric: Not answering any questions, only sporadically makes eye contact upon stimulation Neuro: Moving all extremities, nonfocal - Labs CBC & Chem 7: 05/29/20 07:45 05/31/20 08:02 Labs: Abnormal Lab Results - Last 24 Hours (Table) 05/30/20 05/30/20 05/30/20 Range/Units 16:42 19:59 23:54 POC Glucose (mg/dL) 129 H 135 H 144 H (75-99) mg/dL 05/31/20 05/31/20 Range/Units 06:24 12:04 POC Glucose (mg/dL) 165 H 148 H (75-99) mg/dL Microbiology - Last 24 Hours (Table) 05/27/20 18:41 Blood Culture - Preliminary Blood No Growth after 72 hours Assessment and Plan Plan: Altered mentation, unclear etiology -- suspected meningitis/encephalitis versus septic encephalopathy -Continue with broad-spectrum antibiotic coverage -LP revealed high protein and glucose -ID consult appreciated -Fall precautions -Neuro recs appreciated-patient was taken off empiric Keppra after EEG was not suspicious for seizures -Inflammatory markers elevated -Repeat Covid testing negative Type 2 DM -BECKY with FS Elevated troponin -Repeat in AM Hypertension -patient cannot take oral medication -currently on labetalol 10mg IV PRN DVT prophylaxis -Heparin subq Disposition: Discussed the case with the Apxsxcld-hx-smu Stephani who noted that she does not believe the patient would have wanted to " in the hospital". She feels that if her [id number] isn't improving, that they would like to consider Home hospice. She is going to discuss this with her and will get back to the staff regarding their decision. Discussed with: RN Anticipated discharge date: Unknown Anticipated discharge place: Unknown A total of 35 minutes was spent on the care of this complex patient more than 50% of the time was spent in counseling and care coordination.
[2020-05-31] MEDS: SODIUM CHLORIDE 0.9% 1,000 ML IV SCH ×2 (15:44→19:50)
--- NOTE | 2020-05-31 16:17 | P.PN ---
Progress Note - Text Progress Note Date: 05/31/20 Advanced Care Planning Active Diagnosis: Delirium/metabolic encephalopathy Persons present: Son, [id number] Summary: Discussed the patient's goals of care in great detail. The patient's son (only child/HCP -- Dominik Dickerson) noted that his mother had expressed her wishes of not wanting life-support or overly aggressive interventions at end-of-life. He however also noted that following her hip surgery in April, the patient had been bedbound though slowly recovered after undergoing rehab. He stayed with the patient for 1 week afterwards and noted that she was "80 % of her usual self", was ambulating with a walker, and holding conversations. Discussed the possible reversible nature of the patient's current illness, although an overall poor prognosis due to patient's advance age. Family requested a hospice evaluation which was ordered. Time spent: Total time spent face to face in education and discussion directly related to a dvanced care plannin minutes
[2020-05-31] MEDS: LABETALOL 5 MG/ML VIAL MDV IVP PRN ×3 (16:25→19:51)
[2020-05-31 16:37] LABS: Glucose,Whole Blood 175 mg/dL (75-99)
[2020-05-31] MEDS ORDERED: levETIRAcetam IV 1,000 MG in SALINE 1 100ML.BAG IVPB STA (17:17)
--- NOTE | 2020-05-31 17:30 | P.PN ---
Subjective Progress Note Date: 05/31/20 Patient was seen at bedside and per the patient's nurse she continues to be nonresponsive. She is having the tremulousness of the whole body mostly to stimulation. The primary care team spoke with the patient's family and the the family was to pursue hospice. Hospice team is consulted. Patient continues to be spiking fevers 100.2 to 100.3 Objective - Vital Signs Vital signs: Vital Signs Temp 100.2 F H 05/31/20 15:41 Pulse 77 05/31/20 15:41 Resp 22 05/31/20 15:41 BP 207/73 05/31/20 15:41 Pulse Ox 96 05/31/20 15:41 Intake & Output 05/30/20 05/31/20 05/31/20 18:59 06:59 18:59 Intake Total 100 750 0 Output Total 400 1000 Balance -300 -250 0 Weight 100.5 kg 100.5 kg Intake: Intake, IV Titration 100 750 Amount Acyclovir Sodium 750 mg 250 In Sodium Chloride 0.9% 250 ml @ 265 mls/hr IV Q12H MARI Rx#:[id number] Cefepime 2 gm In Sodium 100 Chloride 0.9% 100 ml @ 25 mls/hr IVPB Q12HR MARI Rx #:[id number] Sodium Chloride 0.9% 1, 500 000 ml @ 100 mls/hr IV . Q10H MARI Rx#:[id number] Oral 0 Output: Urine 400 1000 Uretheral (Caban) 400 Stool 0 Other: Voiding Method Indwelling Catheter Indwelling Catheter Indwelling Catheter - Exam GENERAL: The patient is lying and seemed restless upon being awake. NEUROLOGICAL: Limited because of patient condition Higher mental function: The patient opens eyes to verbal stimuli. Not verbally responsive or following commands. Awake and not verbally responsive or following commands. Tremulousness of all body to stimuli. Cranial nerves: Unable to assess the pupil size because of her cooperation. She would open them and then she would close him back I tried to minimally open her eyes but that she's resisting. There does not seem to be any gaze version. Primary gaze is midline. Facial sensation unable to assess. No facial weakness noted at baseline. Hearing is unable to assess. Motor: Gait is deferred because of lack of cooperation. The strength is limited because of her condition. She was having tremors of all extremities upon being awakes. Cerebellum: Unable to assess Sensation: Unable to assess because of the patient condition Reflexes (right/left): Unable to assess because of her cooperation. Plantars are mute bilaterally. - Labs CBC & Chem 7: 05/29/20 07:45 05/31/20 08:02 Labs: Abnormal Lab Results - Last 24 Hours (Table) 05/30/20 05/30/20 05/31/20 Range/Units 19:59 23:54 06:24 POC Glucose (mg/dL) 135 H 144 H 165 H (75-99) mg/dL 05/31/20 05/31/20 Range/Units 12:04 16:33 POC Glucose (mg/dL) 148 H 175 H (75-99) mg/dL Microbiology - Last 24 Hours (Table) 05/27/20 18:41 Blood Culture - Preliminary Blood No Growth after 72 hours Assessment and Plan Assessment: This is a 84-year-old woman that was transferred from [facility] where she presented on 05/21/20 with initial complaining of shortness of breath. She has Altered mental status and was transferred for escalation of care. Per medical records, patient's family had reported the patient had hip placement revision surgery in April 2020 and since then the patient has not been herself then though had continue to meet her ADLs and lives by herself. Delerium. There is concern for meningoencephalitis. Also pneumonia. Concern for meningoencephalistis Uncontrolled hypertension Possible community acquired pneumonia (per Primary team) Diabetes mellitus Plan: She received Keppra 1 gm (around 00:44 on 05/26/20) by the primary team at our facility and that was not start any the maintenance seizure medication and they felt the seizure was less likely. Routine EEG on 05/26/2020 showed the tobacco slowing is consistent with moderate to severe encephalopathy of nonspecific etiology. There are no focal slowing, epileptiform discharges or seizure seen during the on the study. There are significant myogenic artifact throughout the study. Patient is having tremors since mostly evoked was stimulation. As a prophylaxis ulcer at the patient on Keppra 500 mg every 12 hours as well as either with the patient with 1 g of Keppra. CSF: It's clear, colorless, 0 nucleated cells, glucose of 86, total protein of 80. CSF cultures there is no rhythm seen. There is aerobic CSF culture preliminary. Blood cultures after 72 hours there is no growth. Currently the patient is on acyclovir 750 mg every 12 hours, cefepime 2 g every 12 hours TSH: 0.416, free T4: 2.31. Vitamin B12: 1419. folate: pending. Ammonia level <9. Urinalysis: no UTI. During the day have the lights on and open the window curtains while opposite at night. Consider Seroquel low dose PRN if needed for agitation. Currently the patient is on hormonal 2 mg IM every 4 hours when necessary for agitation. Again I recommend Seroquel over Haldol. Infection disease is on board and we'll defer the management to them. We'll defer the treatment of any underlying pneumonia to the primary team. We'll defer management of her hypertension as well as her diabetes to the prim aniyah team. The family wanted the patient to be hospice. Hospice team is consulted. The plan was discussed with patient's nurse. Giancarlo Ledezma M.D. Neuro-hospitalist Time with Patient: Less than 30
[2020-05-31 20:27] LABS: Glucose,Whole Blood 175 mg/dL (75-99)
[2020-05-31] MEDS ORDERED: levETIRAcetam IV 500 MG in SODIUM CHLORIDE 0.9% 100 ML IVPB SCH (21:00)
--- NOTE | 2020-05-31 23:08 | PN ---
PROGRESS NOTE DATE OF SERVICE: 05/31/2020 REASON FOR FOLLOWUP: Fever. INTERVAL HISTORY: Patient has been running a low fever today of 100 to 100.2 degrees Fahrenheit. The patient is hemodynamically stable. She is currently breathing comfortably on room air 96%. Mentation remains to be an issue. No vomiting or diarrhea has been reported by nursing staff. PHYSICAL EXAMINATION: Blood pressure is 191/87, pulse of 76. Temperature is 97.2, she is 96% on room air. General description is an elderly female lying in bed in no distress. Respiratory system: Unlabored breathing, decreased breath sounds at bases. No wheeze. Heart S1, S2. Regular rate and rhythm. Abdomen soft. No tenderness. LABS: No new labs have been obtained today. DIAGNOSTIC IMPRESSION AND PLAN: Patient with fever with clear focus of infection in this patient who did have extensive workup is still pending. We will repeat blood cultures and adjust antibiotic to Zosyn and monitor clinical course closely. MMODL / IJN: [id number] /
[2020-06-01] MEDS: HEPARIN SODIUM,PORCINE 5,000 UNIT/ML 1 ML VIAL SQ SCH ×4 (00:01→23:17)
[2020-06-01] MEDS: methylPREDNISolone SOD SUCCI 125 MG/2 ML VIAL IV SCH ×3 (00:01→12:16)
[2020-06-01] MEDS: PIPERACILLIN-TAZOBACTAM 3.375 GM in SODIUM CHLORIDE 0.9% 100 ML IVPB SCH ×4 (00:02→23:18)
[2020-06-01] MEDS: NITROGLYCERIN OINT 1 INCH/GM PACKET TOPICAL SCH ×5 (00:02→23:18)
[2020-06-01] MEDS: levETIRAcetam IV 500 MG in SODIUM CHLORIDE 0.9% 100 ML IVPB SCH ×2 (01:54→15:50)
[2020-06-01] MEDS: ACYCLOVIR SODIUM 750 MG in SODIUM CHLORIDE 0.9% 250 ML IV SCH ×2 (01:57→15:50)
[2020-06-01] MEDS: LABETALOL 5 MG/ML VIAL MDV IVP PRN ×4 (02:45→23:23)
[2020-06-01] MEDS: SODIUM CHLORIDE 0.9% 1,000 ML IV SCH ×2 (06:10→16:50)
[2020-06-01] MEDS: diphenhydrAMINE 50 MG/ML 1 ML VIAL IVP SCH ×5 (06:12→23:17)
[2020-06-01 06:18] LABS: Glucose,Whole Blood 181 mg/dL (75-99)
[2020-06-01] MEDS: INSULIN ASPART (NovoLOG) 100 UNIT/ML VIAL SQ SCH ×5 (06:21→20:54)
--- NOTE | 2020-06-01 07:30 | XR ---
EXAMINATION TYPE: XR chest 1V portable DATE OF EXAM: 06/01/2020 COMPARISON: 05/27/2020 HISTORY: Abnormal x-ray TECHNIQUE: Single frontal view of the chest is obtained. FINDINGS: Portions of the right hemithorax are not included. Stable size of the heart within normal limits. No sizable pneumothorax. Patchy basilar infiltrate are seen. Slightly coarsened interstitium stable. IMPRESSION: Patchy bibasilar infiltrate demonstrate no significant interval change.
[2020-06-01] MEDS: METOPROLOL TARTRATE 12.5 MG TAB PO SCH ×2 (08:45→19:58)
[2020-06-01] MEDS: THIAMINE 100 MG TAB PO SCH (08:46)
[2020-06-01] MEDS: MULTIVITAMINS, THERA 1 EACH TAB PO SCH (08:46)
[2020-06-01] MEDS: FAMOTIDINE 20 MG/2 ML VIAL IV SCH (08:52)
[2020-06-01 11:43] VITALS: BMI 41.1
[2020-06-01 12:14] LABS: Glucose,Whole Blood 179 mg/dL (75-99)
--- NOTE | 2020-06-01 13:51 | P.PN ---
Subjective Progress Note Date: 06/01/20 No acute events overnight reported by nursing staff Objective - Vital Signs Vital signs: Vital Signs Temp 97.8 F 06/01/20 11:42 Pulse 85 06/01/20 11:42 Resp 20 06/01/20 11:42 BP 222/100 06/01/20 11:42 Pulse Ox 95 06/01/20 11:42 Intake & Output 05/31/20 06/01/20 06/01/20 18:59 06:59 18:59 Intake Total 850 Output Total 0 750 Balance 850 -750 Weight 100.5 kg 112 kg 112 kg Intake: Intake, IV Titration 850 Amount Acyclovir Sodium 750 mg 250 In Sodium Chloride 0.9% 250 ml @ 265 mls/hr IV Q12H MARI Rx#:[id number] Cefepime 2 gm In Sodium 100 Chloride 0.9% 100 ml @ 25 mls/hr IVPB Q12HR MARI Rx #:[id number] Sodium Chloride 0.9% 1, 400 000 ml @ 100 mls/hr IV . Q10H MARI Rx#:[id number] levETIRAcetam IV 1,000 mg 100 In Saline 1 100ml.bag @ 400 mls/hr IVPB ONCE STA Rx#:[id number] Oral 0 Output: Urine 750 Stool 0 0 Other: Voiding Method Indwelling Catheter Indwelling Catheter Indwelling Catheter # Bowel Movements 0 - Exam General: The patient is awake and alert, in no distress Eye: there is normal conjunctiva bilaterally. Neck: The neck is supple, there is no JVD. Cardiovascular: Normal S1-S2, no S3-S4, no murmurs. Respiratory: Lungs clear to auscultation bilaterally Gastrointestinal: Abdomen is soft, nontender Musculoskeletal: There is no pedal edema. Skin: Skin is warm and dry - Labs CBC & Chem 7: 05/29/20 07:45 05/31/20 08:02 Labs: Abnormal Lab Results - Last 24 Hours (Table) 05/31/20 05/31/20 06/01/20 Range/Units 16:33 20:26 06:17 POC Glucose (mg/dL) 175 H 175 H 181 H (75-99) mg/dL 06/01/20 Range/Units 12:12 POC Glucose (mg/dL) 179 H (75-99) mg/dL Microbiology - Last 24 Hours (Table) 05/27/20 18:41 Blood Culture - Preliminary Blood No Growth after 96 hours Assessment and Plan Assessment: Altered mentation, unclear etiology -- suspected meningitis/encephalitis versus septic encephalopathy -Continue with broad-spectrum antibiotic coverage -LP revealed high protein and glucose -ID consult appreciated -Fall precautions -Neuro recs appreciated -Inflammatory markers elevated -Repeat Covid testing negative Type 2 DM -BECKY with FS Elevated troponin -Repeat in AM Hypertension -patient cannot take oral medication -currently on labetalol 10mg IV PRN DVT prophylaxis -Heparin subq Called to discuss with family yesterday. Awaiting hospice consult.
--- NOTE | 2020-06-01 14:01 | PN ---
PROGRESS NOTE DATE OF SERVICE: 06/01/2020 REASON FOR FOLLOWUP: Fever and a question of encephalitis/pneumonitis. INTERVAL HISTORY: The patient overall fever pattern has improved. No fever recorded in the last 12 hours. The patient remains to be lethargic and unable to provide any history. No vomiting or diarrhea has been reported by nursing staff. PHYSICAL EXAMINATION: Blood pressure 122/100 with a pulse of 85, temperature 97.8. She is 95% on room air. General description is an elderly female, lying in bed in no distress. RESPIRATORY SYSTEM: Unlabored breathing, decreased breath sounds, no wheeze. HEART: S1, S2. Regular rate and rhythm. ABDOMEN: Soft, no tenderness. LABS: No new labs have been obtained today. Chest x-ray basilar infiltrate. No change. DIAGNOSTIC IMPRESSION AND PLAN: Patient with a fever in this patient cannot be . HSV DNA by PCR came back negative with concern for possible aspiration pneumonitis. Antibiotic will be adjusted to Zosyn. Plan for possible hospice which may improve for antibiotic can be safely discontinued at that point. MMODL / IJN: [id number] /
[2020-06-01 17:04] LABS: Glucose,Whole Blood 171 mg/dL (75-99)
[2020-06-01 20:40] LABS: Glucose,Whole Blood 168 mg/dL (75-99)
[2020-06-02] MEDS: levETIRAcetam IV 500 MG in SODIUM CHLORIDE 0.9% 100 ML IVPB SCH (01:07)
[2020-06-02] MEDS: ACYCLOVIR SODIUM 750 MG in SODIUM CHLORIDE 0.9% 250 ML IV SCH (02:37)
[2020-06-02] MEDS: LABETALOL 5 MG/ML VIAL MDV IVP PRN ×2 (02:56→12:49)
[2020-06-02 06:05] LABS: Glucose,Whole Blood 171 mg/dL (75-99)
[2020-06-02] MEDS: SODIUM CHLORIDE 0.9% 1,000 ML IV SCH ×2 (06:24→12:14)
[2020-06-02] MEDS: diphenhydrAMINE 50 MG/ML 1 ML VIAL IVP SCH ×2 (06:29→12:49)
[2020-06-02] MEDS: NITROGLYCERIN OINT 1 INCH/GM PACKET TOPICAL SCH ×2 (06:29→12:14)
[2020-06-02] MEDS: INSULIN ASPART (NovoLOG) 100 UNIT/ML VIAL SQ SCH ×2 (06:30→12:15)
--- NOTE | 2020-06-02 08:15 | P.DS ---
Providers Date of admission: 05/25/20 20:45 Expected date of discharge: 06/02/20 Attending physician: Nathan Garrett MD Consults: 05/26/20 01:49 Consult Physician Urgent Consulting Provider: Giancarlo Ledezma Consult Reason/Comments: AMS Do you want consulting provider notified?: Yes 05/27/20 22:51 Consult Physician Urgent Consulting Provider: Unique Griffin Consult Reason/Comments: Fever of unclear etiology, suspected Meningitis Do you want consulting provider notified?: Yes Primary care physician: Stated None Hospital Course: Patient will be discharged to [facility]. Below is a summary of her hospital stay This is a 84-year-old female with past medical history significant for type 2 diabetes and essential hypertension who was transferred to our hospital from [facility] with worsening shortness of breath and altered mental status. Patient had extensive evaluation and was treated with broad-spectrum antibiotic and antiviral for suspected meningitis. She was seen and evaluated by neurology and infectious disease. Her clinical condition did not improve throughout her hospital stay and she was actually declining. Family members requested comfort care/hospice. Arrangement made with [facility]. For further details about this hospitalization please refer to the electronic chart. Patient Condition at Discharge: Poor Plan - Discharge Summary Discharge Rx Participant: No New Discharge Prescriptions: New cloNIDine 0.2 MG/24HR PATCH [Catapres-TTS] 1 patch TRANSDERM Q7D #2 patch Discontinued metFORMIN HCL [Glucophage] 500 mg PO DAILY Vitamin E 400 unit PO DAILY Turmeric Powder 750mg 1 tab PO DAILY Triple Magnesium Complex 400mg 1 tab PO DAILY Cholecalciferol [Vitamin D3 (25 Mcg = 1000 Iu)] 2,000 unit PO DAILY Sennosides [Senna] 8.6 mg PO HS Nortriptyline HCl [Pamelor] 50 mg PO DAILY HYDROcodone/APAP 5-325MG [Todd 5-325] 1 tab PO Q4-6H Multivitamins, Thera [Multivitamin (formulary)] 1 tab PO DAILY Metoprolol Tartrate [Lopressor] [address] Natural Advanced Tart Person 465mg 1 tab PO DAILY Biotin 10,000 mcg PO DAILY Salley-3 Fatty Acids/Fish Oil [Fish Oil 1,000 mg Softgel] 3 tab PO DAILY Ferrous Sulfate [Iron (65 MG Elemental)] 325 mg PO W/BRKFST Enalapril Maleate 10 mg PO DAILY Cinnamon Bark [Cinnamon] 1,000 mg PO DAILY Chromium Picolinate 200 mcg PO DAILY Celecoxib [CeleBREX] 200 mg PO HS hydrOXYzine HCL [Atarax] 25 mg PO DAILY PRN PRN Reason: Itching/Anxiety Aspirin [Adult Low Dose Aspirin EC] 81 mg PO Q12H Acetaminophen [Tylenol] 650 mg PO Q6H PRN PRN Reason: Pain traZODone HCL [Desyrel] 50 mg PO HS Discharge Medication List cloNIDine 0.2 MG/24HR PATCH [Catapres-TTS] 1 patch TRANSDERM Q7D #2 patch 06/02/20 [Rx] Activity/Diet/Wound Care/Special Instructions: [facility]: [phone]
[2020-06-02 08:49] VITALS: RESP 20; TEMP 98
[2020-06-02] MEDS: PIPERACILLIN-TAZOBACTAM 3.375 GM in SODIUM CHLORIDE 0.9% 100 ML IVPB SCH (08:49)
[2020-06-02] MEDS: FAMOTIDINE 20 MG/2 ML VIAL IV SCH (08:50)
[2020-06-02] MEDS: THIAMINE 100 MG TAB PO SCH (08:50)
[2020-06-02] MEDS: MULTIVITAMINS, THERA 1 EACH TAB PO SCH (08:50)
[2020-06-02] MEDS: HEPARIN SODIUM,PORCINE 5,000 UNIT/ML 1 ML VIAL SQ SCH (08:50)
[2020-06-02] MEDS: METOPROLOL TARTRATE 12.5 MG TAB PO SCH (08:50)
[2020-06-02] MEDS ORDERED: cloNIDine 0.2 MG/24HR PATCH TRANSDERM SCH (09:00)
[2020-06-02 11:37] VITALS: BP 187/109; PULSE 67
[2020-06-02 11:39] LABS: Glucose,Whole Blood 143 mg/dL (75-99)
== END 2020-06-02 14:15 | disposition hospice, inpatient (51) | DRG 97 ==
LOC: 3SCARD 20:45
PROVIDERS: ADMIT Internal Medicine; ATTEND Internal Medicine
PROC: 009U3ZX Drainage of Spinal Canal, Percutaneous Approach, Diagnostic (ICD-10-PCS; principal; 2020-05-28)
DX: G03.9 Meningitis, unspecified (principal); G93.41 Metabolic encephalopathy; J18.9 Pneumonia, unspecified organism; J98.11 Atelectasis; E11.65 Type 2 diabetes mellitus with hyperglycemia; E78.5 Hyperlipidemia, unspecified; G25.3 Myoclonus; I10 Essential (primary) hypertension; Z20.828 Contact with and (suspected) exposure to other viral communicable diseases; Z66 Do not resuscitate; Z51.5 Encounter for palliative care; Z79.82 Long term (current) use of aspirin; Z79.84 Long term (current) use of oral hypoglycemic drugs; Z86.73 Personal history of transient ischemic attack (TIA), and cerebral infarction without residual deficits; Z88.1 Allergy status to other antibiotic agents; Z88.5 Allergy status to narcotic agent; Z88.2 Allergy status to sulfonamides; Z53.29 Procedure and treatment not carried out because of patient's decision for other reasons; Z96.641 Presence of right artificial hip joint; F41.9 Anxiety disorder, unspecified
CPT/HCPCS: 70450; 71045; 80048; 80053; 81001; 82140; 82164; 82550; 82565; 82607; 82747; 82805; 82945; 83036; 83605; 83615; 83735; 84145; 84157; 84439; 84443; 84484; 85025; 85379; 85610; 85730; 86140; 86592; 87040; 87070; 87205; 87502; 87529; 87635; 89050; 93970; 94760; 95816